=== PATIENT | male | born 1945 | race Caucasian/White ===

== ENCOUNTER 2017-05-18 10:58 | Outpatient (CLI) | payer MEDICARE, BC ==
[2017-05-18] MEDS ORDERED: Iopamidol 370 76% 100 ML VIAL ONE (14:30)
== END 2017-05-18 10:59 | disposition home or self-care (01) ==
LOC: BICCT 10:58
PROVIDERS: ATTEND Thoracic Surgery (Cardiothoracic Vascular Surgery)
DX: Z95.828 Presence of other vascular implants and grafts; I71.4 Abdominal aortic aneurysm, without rupture
CPT/HCPCS: 74174

== ENCOUNTER 2017-05-22 09:41 | Outpatient (CLI) | payer MEDICARE, BC ==
--- NOTE | 2017-05-22 12:34 | MRI ---
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 FINDINGS: Motion artifact limits image detail. No joint effusion is evident. No osteochondral defect is evident. The lateral medial epicondyles appe ar within normal limits. The biceps and brachialis insertions appear within normal limits. The visual ized supinator demonstrates a normal signal intensity and bulk. The visualized extensor tendons of th e proximal forearm demonstrate normal signal intensity. The ulna collateral ligament, radial collater al ligament, and lateral ulnar collateral ligament are intact. The extensor mechanism appears grossly intact. Visualized aspects of the ulnar nerve appear within normal limits. IMPRESSION: 1. Some limitations to the exam as above. 2. Normal muscle signal intensity and bulk involving the radial nerve motor distribution. No definite mass effect process is seen along the expected course of the posterior interosseous nerve or radial nerve bifurcation at the level of the elbow. POS: [facility]
== END 2017-05-22 09:42 | disposition home or self-care (01) ==
LOC: MRI 09:41
PROVIDERS: ATTEND Psychiatry & Neurology Neurology
DX: G56.32 Lesion of radial nerve, left upper limb (principal)

== ENCOUNTER 2018-03-12 06:42 | Outpatient (CLI) | payer MEDICARE, BC ==
[2018-03-12 13:00] LABS: Hemoglobin 14.1 g/dL (14.0-18.0); Mean Corpuscular HGB CONC 31.9 g/dL (32.0-36.0); Mean Corpuscular Hemoglobin 30.2 pg (27.0-31.0); Mean Corpuscular Volume 94.6 fL (78.0-98.0); Mean Platelet Volume 7.3 fL (7.4-10.4); Platelet Count 308 thou/uL (130-400); RBC Distribution Width 12.4 % (11.5-14.5); Red Blood Cell (RBC) Count 4.68 mill/uL (4.70-6.10); White Blood Cell (WBC) Count 7.2 thou/uL (4.8-10.8)
[2018-03-12 13:19] LABS: Anion Gap 13 mmol/L (10-20); BUN (Urea Nitrogen) 22 mg/dL (8.4-25.7); Calc. Creatinine Clearance 0 mL/min (70-130); Calcium 10.3 mg/dL (7.8-10.44); Carbon Dioxide 25 mmol/L (23-31); Chloride 106 mmol/L (98-107); Estimated GFR-MDRD 82; Glucose 100 mg/dL (80-115); Potassium 4.4 mmol/L (3.5-5.1); Sodium 140 mmol/L (136-145)
== END 2018-03-12 06:43 | disposition home or self-care (01) ==
LOC: LABBT 06:42
PROVIDERS: ATTEND Thoracic Surgery (Cardiothoracic Vascular Surgery)
DX: Z01.818 Encounter for other preprocedural examination (principal); I71.4 Abdominal aortic aneurysm, without rupture
CPT/HCPCS: 80048; 85027; 86850; 86900; 86901; 93005; 93010

== ENCOUNTER 2018-03-12 10:30 | Inpatient (IN) | payer MEDICARE, BC ==
[2018-03-13] MEDS ORDERED: CEFAZOLIN 2 GM/50 ML BAG ONE (06:17)
[2018-03-13] MEDS ORDERED: Heparin 5,000 UNITS/ML VIAL ONE (06:35)
[2018-03-13] MEDS ORDERED: Protamine Sulfate 50 MG/5 ML VIAL ONE (06:35)
[2018-03-13] MEDS ORDERED: Dexmedetomidine 200 MCG/2 ML VIAL ONE (06:37)
[2018-03-13] MEDS ORDERED: Midazolam HCl 5 mg/5 ml Vial ONE (06:37)
[2018-03-13] MEDS ORDERED: Fentanyl 100 MCG/2 ML VIAL ONE ×2 (06:37→12:19)
[2018-03-13] MEDS ORDERED: Vecuronium 10 MG VIAL ONE ×2 (06:37→10:19)
[2018-03-13] MEDS ORDERED: Midazolam HCl 2 mg/2 ml Vial ONE (06:37)
--- NOTE | 2018-03-13 07:18 | HP ---
HISTORY OF PRESENT ILLNESS: This is a 72-year-old gentleman whom I have followed for several years for an enlarging abdominal aortic aneurysm, now up to 6 cm in size with a short neck and significant iliac and femoral disease making an endovascular aneurysm repair not feasible. He is being admitted today for an aortobifemoral bypass. He has had a negative stress test about 1 year ago and an echo done a few weeks ago that was reportedly okay. PAST MEDICAL HISTORY: Includes prior right iliac stent by Dr. Reese. Previous hypertension, dyslipidemia, longstanding smoking history, bilateral rotator cuff injuries and left radial nerve dysfunction. PAST SURGICAL HISTORY: Includes knee surgery, bilateral herniorrhaphy, cervical fusion, stent to the right iliac artery, and cholecystectomy. SOCIAL HISTORY: He has a longstanding smoking history, but stopped in the past three months. He is with his , a lung cancer survivor. MEDICATIONS: Include 1. Amlodipine 5 mg a day. 2. Aspirin 81 a day. 3. Lipitor 20 a day. 4. Mitigare 0.6 mg daily. REVIEW OF SYSTEMS: The patient has nocturia times 0 to 1. He has no chest pain. He does admit to weight gain. He denies cough or shortness of breath. He does admit to claudication in his calves, if he is in a hurry or going uphill, but not lifestyle limiting. He does have low back pain with sciatica and numbness over his right anterior thigh. PHYSICAL EXAMINATION: VITAL SIGNS: Height 6 feet 1 inch. Weight about 175. NECK: No carotid bruits. CARDIAC: Regular rate and rhythm. No murmurs. LUNGS: Clear to auscultation. ABDOMEN: Palpable, nontender. Abdominal aortic aneurysm. EXTREMITIES: No peripheral edema. He has palpable femoral pulses and no distal pulses, with a Doppler signal in both posterior tibials of about 100-110. PLAN: At this time is for an aortobifemoral bypass and informed consent has been obtained. Number of questions have been asked by the today and she has not previously accompanied him to his office visits. Job ID: [id number]
[2018-03-13] MEDS ORDERED: Vancomycin HCl 500 MG VIAL ONE (07:23)
[2018-03-13] MEDS ORDERED: Heparin 10,000 UNITS/1 ML VIAL 30,000 UNITS in Sodium Chloride 0.9% 1,000 ML IVPB SCH (08:15)
[2018-03-13] MEDS ORDERED: ePHEDrine/0.9% NaCl/PF SYRINGE 50 mg/10 ml ONE (10:19)
[2018-03-13] MEDS ORDERED: Glycopyrrolate 0.2 MG/ML 5 ML SYRINGE ONE (10:19)
[2018-03-13] MEDS ORDERED: PROPOFOL 200 MG/20 ML VIAL ONE (10:19)
[2018-03-13] MEDS ORDERED: Dexamethasone 20 MG/5 ML VIAL ONE (10:19)
[2018-03-13] MEDS ORDERED: Ketorolac Tromethamine 30 MG/ML VIAL ONE (10:19)
[2018-03-13] MEDS ORDERED: Lidocaine 2% PF 100 mg/5 ml Syringe ONE (10:19)
[2018-03-13] MEDS ORDERED: PHENYLEPHRINE-NS 100 MCG/ML 10 ML SYRINGE ONE (10:19)
[2018-03-13] MEDS ORDERED: Heparin 30,000 units/30 ml VIAL ONE (10:19)
[2018-03-13] MEDS ORDERED: Ondansetron PF 4 MG/2 ML Vial ONE (10:19)
[2018-03-13] MEDS ORDERED: Ondansetron HCl/PF 4 MG/2 ML Vial IVP PRN (11:15)
[2018-03-13] MEDS ORDERED: Fentanyl 100 MCG/2 ML VIAL SLOW IVP PRN ×2 (12:33)
[2018-03-13] MEDS ORDERED: Potassium Chloride 20 MEQ/100 ML PREMIX BAG IVPB PRN (12:33)
[2018-03-13] MEDS ORDERED: CEFAZOLIN/Water 2 GM/20 ML SYRINGE SLOW IVP SCH (12:33)
[2018-03-13] MEDS ORDERED: DOPamine 400 MG/D5W 250 ML 250 ML IVPB PRN (12:33)
[2018-03-13] MEDS ORDERED: hydrALAZINE 20 MG/ML VIAL SLOW IVP PRN (12:33)
[2018-03-13] MEDS ORDERED: Nitroglycerin 50 MG/250 ML BOT 250 ML IVPB PRN (12:33)
--- NOTE | 2018-03-13 12:40 | OP ---
DATE OF PROCEDURE: 03/13/2018 PREOPERATIVE DIAGNOSES: Abdominal aortic aneurysm and aortoiliac occlusive disease. PROCEDURE PERFORMED: Aortobifemoral bypass with bilateral profundoplasty. DRAW BENCH OPERATOR HELPER: Jesus Hsieh MD. TRANSFUSION: None. ESTIMATED BLOOD LOSS: 350. PROCEDURE: After adequate anesthesia had been obtained, the patient was prepped and draped, given preoperative antibiotics. Bilateral groin incisions were then made to expose the common, both profunda branches bilaterally, and the origin of the superficial femoral artery. Following this, attention was turned to a midline laparotomy incision, which was carried out. Abdomen was entered. Bowel was retracted to the right and out of the abdomen to allow access to the aorta. Dissection was carried proximally to the level of the renal veins and then distally to access the common iliac arteries. Tunnels were created in both groins, staying posterior to the ureters bluntly. Following heparinization, a clamp was applied to the infrarenal abdominal aorta as well as to the distal aorta just above the bifurcation. The aneurysm was opened and there were no lumbar vessels or VALERIA vessels that were patent. Attention was then turned to the iliacs, which were heavily calcified. The calcium was debrided from both origins to allow them to be oversewn with running 3-0 Prolene sutures individually. Following this, a 16 x 8 mm graft was chosen to perform the proximal anastomosis with a running 3-0 Prolene suture. Individual sutures were then used to deal with bleeding sites. Graft was then brought through the tunnel. The left common femoral artery was clamped as was the profunda branches and the SFA. Arteriotomy was performed and there was active bleeding through the graft from the common femoral artery with one clamp being insufficient to control the calcified vessel. A second clamp was applied. The arteriotomy was extended onto the main profunda branch for about 1-1/2 cm. There was heavy posterior calcification; however, it was elected not to do an endarterectomy. Following this, the limb of the graft was anastomosed in an end-to-side fashion with a running 5-0 Prolene suture, flushing the graft, and then back flushing and forward flushing up the iliacs and then down the profunda and finally superficial femoral artery. A similar procedure was performed on the right leg requiring two clamps on the common femoral artery; however, there was a limited endarterectomy performed to allow egress of blood down the orifice of the profunda vessels. Following completion of this anastomosis, the heparin was partially reversed with protamine. The groin wounds were irrigated and closed in layers, and then attention was turned to the abdomen, where the aneurysm was closed over the proximal 2/3 of the graft and then retroperitonealization was carried out with Vicryl suture. Following completion of this, the fascia was closed with a double-stranded PDS running suture. Subcutaneous tissue and skin closed in layers. Job ID: [id number]
[2018-03-13] MEDS ORDERED: Morphine 2 MG/ML SYRINGE SLOW IVP PRN (12:46)
[2018-03-13 12:54] LABS: #Lymphocytes 1.2 thou/uL (1.20-3.40); #Monocytes 0.6 thou/uL (0.11-0.59); #Neutrophils 12.4 thou/uL (1.40-6.50); %Basophils 0.3 % (0.0-1.0); %Eosinophils 0.2 % (0.0-10.0); %Lymphocytes 8.2 % (21.0-51.0); %Monocytes 3.9 % (0.0-10.0); %Neutrophils 87.4 % (42.0-75.0); Hemoglobin 11.7 g/dL (14.0-18.0); Mean Corpuscular HGB CONC 32.8 g/dL (32.0-36.0); Mean Corpuscular Volume 97.6 fL (78.0-98.0); Mean Platelet Volume 7.1 fL (7.4-10.4); Platelet Count 230 thou/uL (130-400); RBC Distribution Width 12.3 % (11.5-14.5); Red Blood Cell (RBC) Count 3.65 mill/uL (4.70-6.10); White Blood Cell (WBC) Count 14.2 thou/uL (4.8-10.8)
[2018-03-13 13:21] LABS: Anion Gap 16 mmol/L (10-20); BUN (Urea Nitrogen) 24 mg/dL (8.4-25.7); Calc. Creatinine Clearance 73 mL/min (70-130); Calcium 8.6 mg/dL (7.8-10.44); Carbon Dioxide 20 mmol/L (23-31); Chloride 109 mmol/L (98-107); Estimated GFR-MDRD 67; Glucose 164 mg/dL (80-115); Sodium 141 mmol/L (136-145)
--- NOTE | 2018-03-13 13:40 | RAD ---
CHEST ONE VIEW: HISTORY: Chest pain. COMPARISON: 09/30/2015 FINDINGS: The cardiac silhouette is magnified by projection. The pulmonary vasculature is unremarkable. The r ight hemidiaphragm remains slightly elevated. No confluent air space consolidation or evidence of pn eumothorax. The tip of a right subclavian central venous catheter projects over the cavoatrial junct ion. vehicle monitor technician leads overly the chest. IMPRESSION: 1. Right subclavian central venous catheter is in good radiographic position. 2. Atherosclerosis. POS: [facility]
[2018-03-13] MEDS: CEFAZOLIN 2 GM/50 ML-DEXTROSE 2 GM in Premix Bag 1 BAG IVPB SCH ×2 (13:58→21:58)
[2018-03-13] MEDS ORDERED: Ketorolac Tromethamine 30 MG/ML VIAL IVP SCH (14:00)
[2018-03-13] MEDS: D5 1/2 NS w/20 mEq KCL 1,000 ML IV SCH ×2 (14:44→20:01)
[2018-03-13] MEDS ORDERED: Naloxone HCl 0.4 mg/ml Vial IV PRN ×2 (17:23→17:50)
[2018-03-13] MEDS ORDERED: Zolpidem Tartrate 5 MG TAB PO PRN ×2 (17:23→17:50)
[2018-03-13] MEDS ORDERED: diphenhydrAMINE 50 MG/ML VIAL IVP PRN ×2 (17:23→17:50)
[2018-03-13] MEDS ORDERED: diphenhydrAMINE 50 MG/ML VIAL IM PRN ×2 (17:23→17:50)
[2018-03-13] MEDS ORDERED: Ondansetron PF 4 MG/2 ML Vial IVP PRN ×2 (17:23→17:50)
[2018-03-13] MEDS ORDERED: Promethazine HCl 25 MG/ML VIAL IM PRN ×2 (17:23→17:50)
[2018-03-13] MEDS ORDERED: diphenhydrAMINE 25 MG CAP PO PRN ×2 (17:23→17:50)
[2018-03-13] MEDS ORDERED: Communication Order-Pharmacy FS SCH ×2 (17:30→18:00)
[2018-03-13] MEDS ORDERED: fentaNYL Citrate/PF 2,000 MCG in Sodium Chloride 0.9% 60 ML IV PRN (17:50)
[2018-03-13] MEDS ORDERED: Vancomycin HCl 1 GM in Premix Bag 1 BAG IVPB SCH (18:00)
[2018-03-13] MEDS: fentaNYL Citrate/PF 2,000 MCG in Sodium Chloride 0.9% 60 ML IV PRN (18:49)
[2018-03-13] MEDS: Vancomycin HCl 1 GM in Premix Bag 1 BAG IVPB SCH (20:01)
[2018-03-13] MEDS ORDERED: Famotidine/PF 20 mg/2ml Vial SLOW IVP SCH (21:00)
[2018-03-14] MEDS: D5 1/2 NS w/20 mEq KCL 1,000 ML IV SCH (04:46)
[2018-03-14 04:49] LABS: #Lymphocytes 1.1 thou/uL (1.20-3.40); #Monocytes 1.6 thou/uL (0.11-0.59); #Neutrophils 10.8 thou/uL (1.40-6.50); %Basophils 0.1 % (0.0-1.0); %Eosinophils 0.1 % (0.0-10.0); %Lymphocytes 8.1 % (21.0-51.0); %Monocytes 11.5 % (0.0-10.0); %Neutrophils 80.3 % (42.0-75.0); Hemoglobin 11.4 g/dL (14.0-18.0); Mean Corpuscular HGB CONC 32.2 g/dL (32.0-36.0); Mean Corpuscular Hemoglobin 31.5 pg (27.0-31.0); Mean Corpuscular Volume 97.8 fL (78.0-98.0); Mean Platelet Volume 7.4 fL (7.4-10.4); Platelet Count 232 thou/uL (130-400); RBC Distribution Width 12.2 % (11.5-14.5); Red Blood Cell (RBC) Count 3.63 mill/uL (4.70-6.10); White Blood Cell (WBC) Count 13.5 thou/uL (4.8-10.8)
[2018-03-14 05:13] LABS: Anion Gap 10 mmol/L (10-20); BUN (Urea Nitrogen) 18 mg/dL (8.4-25.7); Calc. Creatinine Clearance 79 mL/min (70-130); Calcium 8.4 mg/dL (7.8-10.44); Carbon Dioxide 24 mmol/L (23-31); Chloride 106 mmol/L (98-107); Estimated GFR-MDRD 73; Glucose 194 mg/dL (80-115); Sodium 136 mmol/L (136-145)
[2018-03-14] MEDS: CEFAZOLIN 2 GM/50 ML-DEXTROSE 2 GM in Premix Bag 1 BAG IVPB SCH (05:33)
[2018-03-14] MEDS: Sodium Chloride 0.45% 1,000 ML IV SCH ×2 (06:23→16:50)
[2018-03-14] MEDS: Vancomycin HCl 1 GM in Premix Bag 1 BAG IVPB SCH (07:59)
[2018-03-14] MEDS: Aspirin 325 MG TAB PO SCH (07:59)
--- NOTE | 2018-03-14 09:08 | RAD ---
CHEST ONE VIEW: History: Post op open heart follow up. Comparison: 03-13-18 FINDINGS: Monitor leads overlie the chest. Right central line. Right hemidiaphragm elevation with less inspirat ion than on the prior study. Mild increased markings in the infrahilar regions and lower lung zones w hich appear somewhat more prominent than the prior study, probably related to less inspiration. Old g ranulomatous disease. Atherosclerosis of the aorta. IMPRESSION: Less inspiration with some minimal increased markings in the bases, possibly mild developing subsegme ntal atelectasis related to the poorer inspiratory effort. Atherosclerosis and old granulomatous dise ase. Continued short term follow up. POS: [facility]
[2018-03-14 14:09] LABS: Actual Bicarbonate (HCO3a) 22.7 mEq/L (22-28); Analyzer IN Cardio OR; Base Excess (BEa) -2.7 mEq/L (-2.0 to +3.0); CO2 Tension 41.3 mmHg (35.0-45.0); Calcium, Ionized 1.09 mmol/L (1.12-1.30); Carboxyhemoglobin (COHb) 0.5 gm% (0.0-3.0); Hemoglobin (Hb) 11.9 g/dL (14.0-18.0); O2 Tension (PaO2) 182.8 mmHg (> 70.0); Potassium - ABG Lab 3.67 mmol/L (3.70-5.30); pH, Arterial 7.36 (7.35-7.45)
[2018-03-14 14:10] LABS: Puncture Site ALINE
[2018-03-14] MEDS: Ondansetron PF 4 MG/2 ML Vial IVP PRN (17:59)
[2018-03-15] MEDS: Ondansetron PF 4 MG/2 ML Vial IVP PRN (02:56)
[2018-03-15] MEDS: fentaNYL Citrate/PF 2,000 MCG in Sodium Chloride 0.9% 60 ML IV PRN (04:37)
[2018-03-15 05:08] LABS: #Lymphocytes 0.8 thou/uL (1.20-3.40); #Monocytes 1.5 thou/uL (0.11-0.59); #Neutrophils 11.7 thou/uL (1.40-6.50); %Basophils 0.2 % (0.0-1.0); %Lymphocytes 5.5 % (21.0-51.0); %Monocytes 10.8 % (0.0-10.0); %Neutrophils 83.5 % (42.0-75.0); Hemoglobin 12.1 g/dL (14.0-18.0); Mean Corpuscular HGB CONC 32.8 g/dL (32.0-36.0); Mean Corpuscular Hemoglobin 32.2 pg (27.0-31.0); Mean Corpuscular Volume 98.2 fL (78.0-98.0); Mean Platelet Volume 7.3 fL (7.4-10.4); Platelet Count 233 thou/uL (130-400); RBC Distribution Width 12.1 % (11.5-14.5); Red Blood Cell (RBC) Count 3.74 mill/uL (4.70-6.10)
[2018-03-15 05:24] LABS: Anion Gap 15 mmol/L (10-20); BUN (Urea Nitrogen) 26 mg/dL (8.4-25.7); Calc. Creatinine Clearance 85 mL/min (70-130); Calcium 8.3 mg/dL (7.8-10.44); Carbon Dioxide 21 mmol/L (23-31); Chloride 103 mmol/L (98-107); Estimated GFR-MDRD 78; Glucose 171 mg/dL (80-115); Potassium 4.1 mmol/L (3.5-5.1); Sodium 135 mmol/L (136-145)
[2018-03-15] MEDS: Sodium Chloride 0.45% 1,000 ML IV SCH ×4 (06:47→17:34)
--- NOTE | 2018-03-15 09:05 | RAD ---
CHEST ONE VIEW: HISTORY: Dyspnea. Followup. Heart surgery. COMPARISON: 03/14/2018 FINDINGS: The cardiac silhouette is magnified by projection. The pulmonary vasculature is accentuated by shall ow inspiration. The right hemidiaphragm remains slightly elevated. Mild bibasilar atelectasis is st able. No evidence of pneumothorax. Right subclavian central venous catheter remains in place. IMPRESSION: Stable radiographic appearance of the chest. POS: [facility]
[2018-03-15] MEDS: Aspirin 325 MG TAB PO SCH (09:37)
[2018-03-15] MEDS ORDERED: chlorproMAZINE HCl 50 MG/2 ML AMP SLOW IVP PRN (15:48)
[2018-03-16 05:32] LABS: #Eosinphils 0.1 thou/uL (0.0-0.7); #Lymphocytes 1.6 thou/uL (1.20-3.40); #Monocytes 1.4 thou/uL (0.11-0.59); #Neutrophils 7.9 thou/uL (1.40-6.50); %Basophils 0.3 % (0.0-1.0); %Eosinophils 0.9 % (0.0-10.0); %Lymphocytes 14.2 % (21.0-51.0); %Monocytes 12.8 % (0.0-10.0); %Neutrophils 71.8 % (42.0-75.0); Hemoglobin 10.9 g/dL (14.0-18.0); Mean Corpuscular HGB CONC 32.9 g/dL (32.0-36.0); Mean Corpuscular Hemoglobin 32.2 pg (27.0-31.0); Mean Corpuscular Volume 97.8 fL (78.0-98.0); Mean Platelet Volume 7.6 fL (7.4-10.4); Platelet Count 213 thou/uL (130-400)
[2018-03-16 05:47] LABS: Anion Gap 16 mmol/L (10-20); BUN (Urea Nitrogen) 29 mg/dL (8.4-25.7); Calc. Creatinine Clearance 89 mL/min (70-130); Calcium 7.8 mg/dL (7.8-10.44); Carbon Dioxide 25 mmol/L (23-31); Chloride 100 mmol/L (98-107); Estimated GFR-MDRD 82; Glucose 121 mg/dL (80-115); Potassium 3.5 mmol/L (3.5-5.1); Sodium 137 mmol/L (136-145)
--- NOTE | 2018-03-16 08:01 | RAD ---
CHEST 1 VIEW: Date: 03/16/18 INDICATION: History of postop ileus. Dyspnea. Follow-up heart surgery. COMPARISON: Prior exam dated 03/15/18. FINDINGS: There is persistent elevation of the right hemidiaphragm. Bibasilar atelectasis persists, right great er than left. There is a gastric catheter projecting beyond the left hemidiaphragm below the field of view. Right subclavian central venous catheter is similar appearing. No pneumothorax is evident. IMPRESSION: 1. New gastric catheter projecting below the left hemidiaphragm beyond the field of view. 2. Other stable appearance to the chest. POS: [facility]
[2018-03-16] MEDS: Ketorolac Tromethamine 30 MG/ML VIAL IVP PRN ×2 (08:11→13:00)
[2018-03-16] MEDS: Sodium Chloride 0.45% 1,000 ML IV SCH ×5 (08:13→20:51)
[2018-03-16] MEDS: Aspirin 325 MG TAB PO SCH (08:14)
[2018-03-16] MEDS ORDERED: Pantoprazole 40 MG VIAL IVP SCH (12:45)
[2018-03-16] MEDS ORDERED: Potassium Chloride 40 MEQ in Premix Bag 1 BAG IVPB SCH (13:00)
--- NOTE | 2018-03-16 13:06 | CON ---
DATE OF CONSULTATION: 03/16/2018 SERVICE: Pulmonary Medicine. REASON FOR CONSULT: ICU patient. HISTORY OF PRESENT ILLNESS: The patient is a 72-year-old white male with past medical history significant for severe peripheral vascular disease. He had previous stents in his groin. These things were almost completely occluding calcified over. Ultimately, he had claudication. He presented for an elective outpatient procedure. His postop course was complicated by ileus. He denies any current fevers, chills, nausea, vomiting, or diarrhea. He has yet to tolerate any p.o. He has had a significant amount of output from his NG tube. PAST MEDICAL HISTORY: 1. Peripheral vascular disease, severe. 2. Hypertension. 3. Dyslipidemia. 4. Coronary artery disease. PAST SURGICAL HISTORY: 1. Abdominal aortic aneurysm repair. 2. Bilateral aortofemoral bypass. 3. Rotator cuff repairs. 4. Knee surgeries. 5. Herniorrhaphy. 6. Fusion of the cervical spine. 7. Stent to the right iliac artery. 8. Cholecystectomy. SOCIAL HISTORY: Negative for alcohol, tobacco, or illicit drug use currently. He has a greater than 100-pack year history of smoking. He denies any alcohol or illicit drug use. He has no exposure to chemicals, dust, asbestos, or tuberculosis. FAMILY HISTORY: Noncontributory. ALLERGIES: SULFA. MEDICATIONS: List of the patient's inpatient medications was reviewed. A couple of small updates were made. REVIEW OF SYSTEMS: General, head, ears, eyes, nose, throat, cardiovascular, respiratory, GI, , musculoskeletal, neurologic, and skin are negative except as mentioned in the HPI. PHYSICAL EXAMINATION: VITAL SIGNS: Afebrile with a T-max of 100.2. Pulse 96, blood pressure 128/74, respirations 21 saturation 92% on 2 L nasal cannula. GENERAL: The patient is awake and alert, in no apparent distress. LUNGS: Decent air entry. No prolonged expiratory phase or wheezing appreciated. HEART: Normal rate, regular. ABDOMEN: Soft. Tenderness to palpation is appropriate. Bowel sounds are positive. There is no rebound or guarding. : Roth catheter in place. NEUROLOGIC: Grossly nonfocal. LABORATORY DATA: WBC 11.0 and downtrending, hemoglobin is downtrending to 11, platelets 213,000. PH 7.36, pCO2 41, PO2 180. Basic metabolic profile is completely unremarkable with a creatinine of 0.91. Potassium 3.5. IMAGING: Chest x-ray demonstrates elevated right-sided hemidiaphragm. There is an enteric catheter coursing below the level of the diaphragm. There is a right subclavian central venous catheter which terminates in good position. ASSESSMENT: 1. Peripheral vascular disease, status post repair of abdominal aortic aneurysm and bilateral aortofemoral bypass, postop day #3. 2. Ileus postop. 3. Hiccups. 4. Minimal coffee grounds coming from NG tube. DISCUSSION AND PLAN: I will repeat hemoglobin and hematocrit tomorrow morning. Protonix will be initiated twice daily in case we drop further. Thorazine will be discontinued as he had a bad reaction to it yesterday with tachyarrhythmia. Potassium will be replaced today. I will check a magnesium with tomorrow morning's laboratories. Pulmonary and Critical Care will continue to follow along while the patient remains in this location. 70 minutes have been devoted to this patient in various activities. I personally reviewed all imaging studies and laboratory data noted within this document. For fifty percent of this time, I was interacting with the patient at the bedside or coordinating care with the care team. For the remainder of the time I was immediately available to the patient in the hospital unit. Job ID: [id number] MTDD
[2018-03-16] MEDS ORDERED: Potassium Chloride 20 MEQ in Premix Bag 1 BAG IVPB SCH (13:30)
[2018-03-16] MEDS: fentaNYL Citrate/PF 2,000 MCG in Sodium Chloride 0.9% 60 ML IV PRN (16:02)
[2018-03-16] MEDS: Enoxaparin Sodium 30 MG/0.3 ML SYRINGE SC SCH (20:41)
[2018-03-16] MEDS: Pantoprazole 40 MG VIAL IVP SCH (20:42)
[2018-03-17 05:12] LABS: #Basophils 0.1 thou/uL (0.0-0.2); #Eosinphils 0.4 thou/uL (0.0-0.7); #Lymphocytes 1.6 thou/uL (1.20-3.40); #Monocytes 1.2 thou/uL (0.11-0.59); #Neutrophils 6.2 thou/uL (1.40-6.50); %Basophils 0.7 % (0.0-1.0); %Lymphocytes 16.7 % (21.0-51.0); %Monocytes 12.3 % (0.0-10.0); %Neutrophils 66.2 % (42.0-75.0); Hemoglobin 9.4 g/dL (14.0-18.0); Mean Corpuscular HGB CONC 32.8 g/dL (32.0-36.0); Mean Corpuscular Volume 97.7 fL (78.0-98.0); Mean Platelet Volume 7.5 fL (7.4-10.4); Platelet Count 240 thou/uL (130-400); RBC Distribution Width 11.8 % (11.5-14.5); Red Blood Cell (RBC) Count 2.94 mill/uL (4.70-6.10); White Blood Cell (WBC) Count 9.3 thou/uL (4.8-10.8)
[2018-03-17 05:29] LABS: Phosphorus 2.1 mg/dL (2.3-4.7)
[2018-03-17 05:31] LABS: Anion Gap 14 mmol/L (10-20); BUN (Urea Nitrogen) 25 mg/dL (8.4-25.7); Calc. Creatinine Clearance 104 mL/min (70-130); Calcium 7.6 mg/dL (7.8-10.44); Carbon Dioxide 24 mmol/L (23-31); Chloride 103 mmol/L (98-107); Estimated GFR-MDRD Greater than 90; Glucose 91 mg/dL (80-115); Magnesium 1.9 mg/dL (1.6-2.6); Potassium 3.5 mmol/L (3.5-5.1); Sodium 137 mmol/L (136-145)
[2018-03-17] MEDS: Sodium Chloride 0.45% 1,000 ML IV SCH (06:18)
[2018-03-17] MEDS: Aspirin 325 MG TAB PO SCH (08:51)
[2018-03-17] MEDS: Pantoprazole 40 MG VIAL IVP SCH (08:52)
[2018-03-17] MEDS ORDERED: Potassium Phosphate 30 MMOL in Sodium Chloride 0.9% 500 ML IVPB SCH (09:00)
--- NOTE | 2018-03-17 09:25 | PRG ---
DATE OF SERVICE: 03/17/2018 SERVICE: Pulmonary Medicine. INTERVAL HISTORY: The patient is doing fine from respiratory standpoint. Breathing comfortably. There has been no interval change to his condition. Yesterday evening, he had very high residuals in the NG tube. As such, we left it in overnight. Overnight, the residuals fell off to 250 mL over long period of time. As such, we subsequently discontinued his NG tube. He has an appetite. He is passing gas, having bowel movements. PHYSICAL EXAMINATION: VITAL SIGNS: Afebrile, pulse 72, blood pressure 123/53, respirations 18, and saturation 95% on room air. GENERAL: The patient is awake and alert, in no apparent distress. LUNGS: Decent air entry. There is no prolonged expiratory phase or wheezing. HEART: Normal rate and regular. ABDOMEN: Soft, nontender, and nondistended. Bowel sounds are positive. MUSCULOSKELETAL: No cyanosis or clubbing. No pitting in the bilateral lower extremities. NEUROLOGIC: Grossly nonfocal. LABORATORY DATA: WBC 9.3, hemoglobin 9.4, platelets 240,000. Basic metabolic profile is completely unremarkable. Magnesium is 1.9, phosphorus is a little low at 2.1. ASSESSMENT: 1. Peripheral vascular disease, status post repair of abdominal aortic aneurysm, and bilateral aortofemoral bypass, postop day 4. 2. Ileus, improving. 3. Hiccups, improving. DISCUSSION AND PLAN: Hemoglobin has been stable. Replace potassium and phosphorus, which were both low. A clear liquid diet will be provided. If he tolerates this well, this will be advanced through time. From my perspective, he is stable for transition to the floor. When this occurs, he will have no further requirements for inpatient Pulmonary Critical Care opinion, and I will sign off. Job ID: [id number]
[2018-03-17] MEDS: Enoxaparin Sodium 30 MG/0.3 ML SYRINGE SC SCH (21:00)
[2018-03-18 06:36] LABS: Anion Gap 12 mmol/L (10-20); BUN (Urea Nitrogen) 14 mg/dL (8.4-25.7); Calc. Creatinine Clearance 104 mL/min (70-130); Carbon Dioxide 25 mmol/L (23-31); Chloride 106 mmol/L (98-107); Estimated GFR-MDRD Greater than 90; Glucose 111 mg/dL (80-115); Potassium 3.8 mmol/L (3.5-5.1); Sodium 139 mmol/L (136-145)
[2018-03-18] MEDS: Aspirin 325 MG TAB PO SCH (09:22)
[2018-03-18] MEDS: fentaNYL Citrate/PF 2,000 MCG in Sodium Chloride 0.9% 60 ML IV PRN (12:02)
--- NOTE | 2018-03-18 15:31 | CON ---
DATE OF CONSULTATION: Consultation to Dr. Ronni Godoy. PRIMARY CARE PROVIDER: Dr. Aleksandra Frazier. REASON FOR CONSULTATION: C. diff diarrhea. HISTORY OF PRESENT ILLNESS: The patient admitted to the hospital on 03/13/[address] Godoy with abdominal aortic aneurysm and severe peripheral vascular disease. On 03/13/2018, he underwent aortobifemoral bypass with bilateral profundoplasty. The patient was transferred to the intensive care unit postoperatively and was seen in consultation by Dr. Jacky Menchaca. PAST MEDICAL HISTORY: Peripheral vascular disease, abdominal aortic aneurysm, hypertension, dyslipidemia, and coronary artery disease. PAST SURGICAL HISTORY: Abdominal aortic aneurysm repair, rotator cuff repairs, bilateral knee surgeries, herniorrhaphy, fusion of cervical spine, stent in the right iliac artery, and cholecystectomy. MEDICATIONS: At the time of admission included multivitamin one a day; colchicine 1 tablet in the morning, 0.6 mg; Lipitor 20 mg a day; and amlodipine 5 mg twice a day. ALLERGIES: SULFA. FAMILY HISTORY: Multiple members with coronary artery disease on his father's side. Negative for inheritable diseases on his mother's side. He is . Full code status. , next of kin. He quit smoking approximately 4 months ago. REVIEW OF SYSTEMS: GENERAL: No fevers, sweats, chills, headaches, dizziness, or fainting. EYES: No double vision, blurred vision, or flashing light. EAR, NOSE, AND THROAT: No ear pain or drainage. No nasal bleeding. He did have a mild sore throat post endotracheal tube removal, it is now improved. CARDIAC: No chest pain, orthopnea, or paroxysmal nocturnal dyspnea. RESPIRATIONS: No cough, wheezing, or asthma. GASTROINTESTINAL: He is currently having diarrhea every 2 to 3 hours. He has noted no blood in his stools. He has abdominal pain, which hurts front to back. He has had some hiccups. He is not having any nausea or vomiting. GENITOURINARY: No hematuria or dysuria. MUSCULOSKELETAL: No pain or swelling in his legs except in the area of surgery. He has bilateral groin incisions and a midline infraumbilical incision. NEUROLOGIC: No strokes, seizures, or focal weakness. PSYCHIATRIC: No anxiety or depression. SKIN: The aforementioned incisions in the right and left groin in the suprapubic midline area. HEME/LYMPH: No tender or swollen lymph nodes in the axilla, inguinal, or cervical area. PHYSICAL EXAMINATION: GENERAL: He is alert, oriented, cooperative, pleasant gentleman. VITAL SIGNS: Blood pressure 125/67, room air sat 94%, pulse 66, respirations 18, and temperature 98.5. HEAD, EYES, EARS, NOSE, AND THROAT: Revealed pupils are equal, round, and reactive to light. Extraocular movements are intact. Sclerae are white. Tympanic membranes are clear. Nose clear. Throat is clear. NECK: Supple without jugular venous distention, adenopathy, or thyromegaly. CHEST: Clear to auscultation and percussion. HEART: Had a regular rate and rhythm. First and second heart sounds are clear. There are no murmurs or gallops. ABDOMEN: Soft. Bowel sounds are normal. There is some minimal tenderness. No detectable hepatosplenomegaly or mass. EXTREMITIES: No cyanosis, clubbing, or edema. PULSES: Carotid, radial, and femoral pulses are intact. Pedal pulses are diminished, but palpable. SKIN: Warm and dry with clean incisions in the midline suprapubic area and both inguinal areas. HEME/LYMPH: Reveals no tender or swollen lymph nodes in the axilla, inguinal, or cervical area. NEUROLOGIC: Cranial nerves 2 through 12 are intact. Moves all extremities. Deep tendon reflexes grossly symmetric. LABORATORY DATA: Basic metabolic profile is normal. CBC shows a white count of 9.3, hemoglobin 9.4, and platelet count 240,000. His C. difficile antigen is positive. The toxigenic C. difficile is pending. ASSESSMENT: Probable Clostridium difficile colitis; peripheral arterial disease, post bypass surgery in this hospitalization; abdominal aortic aneurysm, post repair; hypertension; and dyslipidemia. PLAN: I have added oral vancomycin 250 q.i.d. to his orally pending toxigenic titer. If positive, we will continue; if negative, we will discontinue. In addition, I have ordered a lipase to be done. Thank you for the consult. We will follow with you. Job ID: [id number]
[2018-03-18] MEDS: Vancomycin HCl 25 MG/ML Oral PO SCH ×2 (17:05→21:13)
--- NOTE | 2018-03-18 17:26 | EKG ---
Test Reason : STAT Blood Pressure : / mmHG Vent. Rate : 110 BPM Atrial Rate : 110 BPM P-R Int : 162 ms QRS Dur : 092 ms QT Int : 338 ms P-R-T Axes : 082 -07 086 degrees QTc Int : 457 ms Sinus tachycardia Nonspecific ST and T wave abnormality Abnormal ECG When compared with ECG of 12-MAR-2018 12:21, Vent. rate has increased BY 50 BPM T wave inversion now evident in Inferior leads Nonspecific T wave abnormality now evident in Lateral leads Confirmed by JUSTIN DHALIWAL, DR. Robles ([id number]) on 03/18/2018 5:26:26 PM Referred By: Liseth AU Confirmed By:DR. Margaret ANDERSON MD
[2018-03-18] MEDS: Enoxaparin Sodium 30 MG/0.3 ML SYRINGE SC SCH (21:13)
[2018-03-19] MEDS ORDERED: HYDROcodone/Acetaminophen 5/325 mg Tablet PO PRN (06:24)
[2018-03-19] MEDS ORDERED: Ibuprofen 800 MG TAB PO PRN (06:25)
--- NOTE | 2018-03-19 08:06 | PDOC.PN ---
- Subjective Encounter Start Date: 03/19/18 Encounter Start Time: 08:04 Subjective: some abd dicomfort, no diarrhea - Objective MAR Reviewed: Yes Vital Signs & Weight: Vital Signs (12 hours) Temp Pulse Resp BP Pulse Ox 03/19/18 07:25 98.0 F 69 16 132/70 96 03/19/18 04:00 98.4 F 78 18 125/72 96 03/18/18 21:20 93 L Weight Admit Weight 180 lb Weight 182 lb 3.2 oz Most Recent Monitor Data Heart Rate from ECG 71 NIBP 132/60 NIBP BP-Mean 92 Respiration from ECG 18 SpO2 98 I&O: 03/18/18 03/19/18 03/20/18 06:59 06:59 06:59 Intake Total 2810 1630 Output Total 1145 1225 Balance 1665 405 Result Diagrams: 03/17/18 04:30 03/18/18 05:45 Phys Exam - Physical Examination Neck: no JVD Respiratory: clear to auscultation bilateral Cardiovascular: RRR, no significant murmur Gastrointestinal: soft mild distention, hyperactive bowel sounds Musculoskeletal: no edema Dx/Plan (1) Colitis due to Clostridium difficile Status: Acute (2) HTN (hypertension) Code(s): I10 - ESSENTIAL (PRIMARY) HYPERTENSION Status: Acute Qualifiers: Hypertension type: essential hypertension Qualified Code(s): I10 - Essential (primary) hypertension (3) PAD (peripheral artery disease) Code(s): I73.9 - PERIPHERAL VASCULAR DISEASE, UNSPECIFIED Status: Chronic (4) Dyslipidemia Code(s): E78.5 - HYPERLIPIDEMIA, UNSPECIFIED Status: Chronic - Plan cont po vancomycin, discuss with Dr Godoy * .
[2018-03-19] MEDS: Aspirin 325 MG TAB PO SCH (08:22)
[2018-03-19] MEDS: Vancomycin HCl 25 MG/ML Oral PO SCH ×4 (08:23→21:16)
--- NOTE | 2018-03-19 09:15 | PRG ---
DATE OF SERVICE: 03/18/2018 SERVICE: Pulmonary Medicine. INTERVAL HISTORY: The patient is doing actually pretty darn well. He is tolerating p.o. He is having bowel movements. In fact, he had some diarrhea. C. diff antigen and toxin have been sent off. My hope is that we created this with motility drugs. Otherwise, there has been no interval change to his condition. PHYSICAL EXAMINATION: VITAL SIGNS: Afebrile, pulse 78, blood pressure 149/69, respirations 20, and saturation 94% on room air. GENERAL: The patient is awake and alert, in no apparent distress. LUNGS: Decent air entry. No prolonged expiratory phase, wheezing, rhonchi, or crackles are present. HEART: Normal rate and regular. ABDOMEN: Soft. Nontender. There is appropriate tenderness secondary to his incision. There is no rebound or guarding. Bowel sounds are active. MUSCULOSKELETAL: No cyanosis or clubbing. No pitting in the bilateral lower extremities. NEUROLOGIC: Grossly nonfocal. LABORATORY DATA: Basic metabolic profile is completely unremarkable. Lipase is low. C. diff antigen and toxin are positive. ASSESSMENT: 1. Peripheral vascular disease, status post repair of abdominal aortic aneurysm and bilateral aortofemoral bypass, postop day 5. 2. Clostridium difficile colitis infection. 3. Hiccups, resolved. 4. Ileus, resolved. DISCUSSION AND PLAN: The patient is on appropriate antimicrobial therapy for his new C. diff infection. From a purely lung standpoint, the patient has no ongoing issues. Pulmonary will sign off at this time. Please call with additional questions or concerns through time. Job ID: [id number] MTDD
[2018-03-19] MEDS: HYDROcodone/Acetaminophen 5/325 mg Tablet PO PRN ×3 (09:35→19:28)
[2018-03-19] MEDS: Atorvastatin Calcium 20 MG TAB PO SCH (21:16)
[2018-03-19] MEDS: Enoxaparin Sodium 30 MG/0.3 ML SYRINGE SC SCH (21:17)
[2018-03-20] MEDS: HYDROcodone/Acetaminophen 5/325 mg Tablet PO PRN ×5 (00:52→21:58)
--- NOTE | 2018-03-20 08:05 | PDOC.PN ---
- Subjective Encounter Start Date: 03/20/18 Encounter Start Time: 08:03 Subjective: no diarhea, abd pain, etc - Objective MAR Reviewed: Yes Vital Signs & Weight: Vital Signs (12 hours) Temp Pulse Resp BP Pulse Ox 03/20/18 07:30 98.1 F 62 16 143/70 H 95 03/20/18 04:00 98.2 F 72 18 117/64 96 03/20/18 00:51 65 20 132/69 03/19/18 21:17 98 03/19/18 21:15 97.9 F Weight Admit Weight 180 lb Weight 178 lb 3.2 oz Most Recent Monitor Data Heart Rate from ECG 71 NIBP 132/60 NIBP BP-Mean 92 Respiration from ECG 18 SpO2 98 I&O: 03/19/18 03/20/18 03/21/18 06:59 06:59 06:59 Intake Total 1630 1790 Output Total 1225 910 Balance 405 880 Result Diagrams: 03/17/18 04:30 03/18/18 05:45 Phys Exam - Physical Examination Neck: no JVD Respiratory: clear to auscultation bilateral Cardiovascular: RRR, no significant murmur Gastrointestinal: soft, non-tender, no distention, positive bowel sounds Musculoskeletal: no edema Dx/Plan (1) Colitis due to Clostridium difficile Status: Acute (2) HTN (hypertension) Code(s): I10 - ESSENTIAL (PRIMARY) HYPERTENSION Status: Acute Qualifiers: Hypertension type: essential hypertension Qualified Code(s): I10 - Essential (primary) hypertension (3) PAD (peripheral artery disease) Code(s): I73.9 - PERIPHERAL VASCULAR DISEASE, UNSPECIFIED Status: Chronic (4) Dyslipidemia Code(s): E78.5 - HYPERLIPIDEMIA, UNSPECIFIED Status: Chronic - Plan colitis symptoms resolved, will need to finish 10d course vanc at [place] * .
[2018-03-20] MEDS: Aspirin 325 MG TAB PO SCH (09:02)
[2018-03-20] MEDS: Vancomycin HCl 25 MG/ML Oral PO SCH ×4 (09:03→21:57)
[2018-03-20 15:05] VITALS: BMI 24.1
[2018-03-20] MEDS: Atorvastatin Calcium 20 MG TAB PO SCH (21:59)
[2018-03-20] MEDS: Enoxaparin Sodium 30 MG/0.3 ML SYRINGE SC SCH (21:59)
[2018-03-21] MEDS: HYDROcodone/Acetaminophen 5/325 mg Tablet PO PRN ×2 (06:02→10:17)
--- NOTE | 2018-03-21 07:18 | PDOC.PN ---
- Subjective Encounter Start Date: 03/21/18 Encounter Start Time: 07:17 Subjective: no abd pain, diarrhea - Objective MAR Reviewed: Yes Vital Signs & Weight: Vital Signs (12 hours) Temp Pulse Resp BP Pulse Ox 03/21/18 03:56 96.9 F L 77 15 133/62 98 03/20/18 20:00 96.9 F L 70 16 121/64 98 Weight Admit Weight 180 lb Weight 177 lb 4 oz Most Recent Monitor Data Heart Rate from ECG 71 NIBP 132/60 NIBP BP-Mean 92 Respiration from ECG 18 SpO2 98 I&O: 03/20/18 03/21/18 03/22/18 06:59 06:59 06:59 Intake Total 1790 Output Total 910 700 Balance 880 -700 Result Diagrams: 03/17/18 04:30 03/18/18 05:45 Phys Exam - Physical Examination Neck: no JVD Respiratory: clear to auscultation bilateral Cardiovascular: RRR, no significant murmur Gastrointestinal: soft, non-tender Musculoskeletal: no edema Dx/Plan (1) Colitis due to Clostridium difficile Status: Acute (2) HTN (hypertension) Code(s): I10 - ESSENTIAL (PRIMARY) HYPERTENSION Status: Acute Qualifiers: Hypertension type: essential hypertension Qualified Code(s): I10 - Essential (primary) hypertension (3) PAD (peripheral artery disease) Code(s): I73.9 - PERIPHERAL VASCULAR DISEASE, UNSPECIFIED Status: Chronic (4) Dyslipidemia Code(s): E78.5 - HYPERLIPIDEMIA, UNSPECIFIED Status: Chronic - Plan complete 10 day course vancomycin po * .
[2018-03-21 07:26] VITALS: BP 141/75; TEMP 98.1
--- NOTE | 2018-03-21 08:10 | DIS ---
DATE OF ADMISSION: 03/13/2018 DATE OF DISCHARGE: 03/21/2018 PRIMARY CARE PROVIDER: Aleksandra Frazier MD. CONSULTING PHYSICIAN: Ronni Godoy MD DISPOSITION: Discharged home. FINAL DIAGNOSES: Colitis, Clostridium difficile, hypertension, dyslipidemia, peripheral vascular disease. DISCHARGE MEDICATIONS: 1. Lipitor 20 mg p.o. daily. 2. Colchicine 1 tab daily 0.6 mg. 3. Vancomycin 250 mg p.o. q.i.d. for 4 days. ALLERGIES: SULFA. CODE STATUS: Full pending at time of discharge. CONSULTATION: [facility]. PROCEDURES: Aortobifemoral bypass with bilateral profundoplasty on 03/13/2018. HOSPITAL COURSE: The patient with peripheral vascular disease, admitted for surgery on 03/18/2018. He was noted to have diarrhea, abdominal pain. C. diff on stool was positive for toxigenic C. difficile. Started on oral vancomycin with rapid resolution of his symptoms. He is doing well at this time. He is being discharged home. LABORATORY DATA: At the time of discharge, white count was 9.3, hemoglobin on admission 11.7, at discharge it is 9.4. Chemistries on 2018 are balanced. At the time of discharge, the patient's vital signs are stable. Cardiovascular exam is excellent. Abdominal exam is normal. FOLLOWUP: He will follow up per Dr. Ronni Godoy's instructions. Job ID: [id number] MTDD
[2018-03-21] MEDS: Aspirin 325 MG TAB PO SCH (08:31)
[2018-03-21] MEDS: Vancomycin HCl 25 MG/ML Oral PO SCH (08:31)
== END 2018-03-21 11:23 | disposition home or self-care (01) | DRG 271 ==
LOC: SURG A 03-13 05:57 → CCU 03-13 12:19 → 2NO 03-17 17:27
PROVIDERS: ADMIT Thoracic Surgery (Cardiothoracic Vascular Surgery); ATTEND Thoracic Surgery (Cardiothoracic Vascular Surgery)
PROC: 021 Heart and Great Vessels, Bypass (ICD-10-PCS; principal; 2018-03-13)
PROC: 04BY0ZZ Excision of Lower Artery, Open Approach (ICD-10-PCS; 2018-03-13)
DX: I71.4 Abdominal aortic aneurysm, without rupture (principal); A04.72 Enterocolitis due to Clostridium difficile, not specified as recurrent; K56.7 Ileus, unspecified; I10 Essential (primary) hypertension; E78.5 Hyperlipidemia, unspecified; I73.9 Peripheral vascular disease, unspecified; I25.10 Atherosclerotic heart disease of native coronary artery without angina pectoris; F17.210 Nicotine dependence, cigarettes, uncomplicated; R06.6 Hiccough; Z79.82 Long term (current) use of aspirin; Z90.49 Acquired absence of other specified parts of digestive tract
CPT/HCPCS: 36415; 36416; 71045; 80048; 82805; 83690; 83735; 84100; 85025; 85027; 86850; 86900; 86901; 87324; 87449; 87493; 90471; 90662; 93005; 93010; C9113; G0008; J1100; J1642; J1644; J1650; J1885; J2001; J2250; J2405; J2704; J2720; J3010; J3230; J3370; J3480; J7050

== ENCOUNTER 2018-04-27 15:30 | Emergency (ER) | payer MEDICARE, BC ==
[~2018-04-27 15:30] MED LIST: ISOVUE-370 76%-LOCM 1 ML ONE
[2018-04-27 16:14] LABS: #Basophils 0.1 thou/uL (0.0-0.2); #Eosinphils 0.3 thou/uL (0.0-0.7); #Lymphocytes 1.8 thou/uL (1.20-3.40); #Monocytes 0.9 thou/uL (0.11-0.59); #Neutrophils 9.8 thou/uL (1.40-6.50); %Basophils 0.7 % (0.0-1.0); %Eosinophils 2.4 % (0.0-10.0); %Lymphocytes 14.2 % (21.0-51.0); %Monocytes 7.1 % (0.0-10.0); %Neutrophils 75.6 % (42.0-75.0); Hemoglobin 12.2 g/dL (14.0-18.0); Mean Corpuscular HGB CONC 31.8 g/dL (32.0-36.0); Mean Corpuscular Volume 94.2 fL (78.0-98.0); Mean Platelet Volume 7.4 fL (7.4-10.4); Platelet Count 483 thou/uL (130-400); RBC Distribution Width 12.5 % (11.5-14.5); Red Blood Cell (RBC) Count 4.06 mill/uL (4.70-6.10); White Blood Cell (WBC) Count 12.9 thou/uL (4.8-10.8)
[2018-04-27 16:34] LABS: ALT (SGPT) 9 U/L (8-55); AST (SGOT) 13 U/L (5-34); Albumin 3.8 g/dL (3.4-4.8); Alkaline Phosphatase 100 U/L (40-150); Anion Gap 17 mmol/L (10-20); BUN (Urea Nitrogen) 20 mg/dL (8.4-25.7); Bilirubin, Total 0.4 mg/dL (0.2-1.2); Calc. Creatinine Clearance 0 mL/min (70-130); Calcium 9.5 mg/dL (7.8-10.44); Carbon Dioxide 21 mmol/L (23-31); Chloride 106 mmol/L (98-107); Estimated GFR-MDRD 77; Globulin 3.7 g/dL (2.4-3.5); Glucose 140 mg/dL (83-110); Potassium 3.1 mmol/L (3.5-5.1); Protein, Total 7.5 g/dL (5.8-8.1); Sodium 141 mmol/L (136-145)
[2018-04-27] MEDS ORDERED: Potassium Chloride 20 MEQ TAB ONE (17:20)
[2018-04-27] MEDS ORDERED: Morphine 4 MG/ML VIAL ONE ×2 (17:20→18:09)
--- NOTE | 2018-04-27 17:32 | CT ---
CONTRAST ENHANCED CT IMAGES ABDOMEN AND PELVIS 04/27/18 HISTORY: 73-year-old with recent history of abdominal aortic aneurysm repair. The lung bases are unremarkable. No evidence of free intraperitoneal air seen. There is a large anterior abdominal wall postsurgical scar. The liver contains small calcified granulomas. Numerous splenic calcified granulomas seen. The gallbladder has been surgically removed. The pancreas is unremarkable. Adrenal glands unremarkable. The kidneys demonstrate no definite evidence of masses or lesions or hyd ronephrosis. Proximal abdominal aortic calcifications seen. A small hiatal hernia is seen (sliding). There is an infrarenal aortobifemoral graft which is patent. The hopi aorta is collapsed with no fl ow seen within it. No dilated loops of bowel seen. There is some stool seen in the colon. Numerous sigmoid colonic diver ticula are present. Osseous structures are intact. IMPRESSION: Patent aortobifemoral graft. The SMA is patent except for some vascular calcifications at its origin. The celiac artery is patent. The renal arteries also patent. Atherosclerotic calcification seen in t he origin of the right renal artery. Extensive common femoral and superficial femoral artery vascular calcifications also seen. POS: HARVINDER
== END 2018-04-27 19:06 | disposition home or self-care (01) ==
LOC: ERS 15:30
DX: R10.30 Lower abdominal pain, unspecified (principal); I71.4 Abdominal aortic aneurysm, without rupture; I10 Essential (primary) hypertension; E78.5 Hyperlipidemia, unspecified; Z87.891 Personal history of nicotine dependence; Z79.899 Other long term (current) drug therapy
CPT/HCPCS: 74177; 80053; 84484; 85025; 96374; 96376; J2270; Q9966

== ENCOUNTER 2018-05-01 06:03 | Inpatient (IN) | payer MEDICARE, BC ==
[2018-04-30 17:19] VITALS: BMI 21.1
[2018-05-01] MEDS ORDERED: Midazolam HCl 2 mg/2 ml Vial ONE (06:36)
[2018-05-01] MEDS ORDERED: Fentanyl 100 MCG/2 ML VIAL ONE ×4 (06:36→13:46)
[2018-05-01] MEDS ORDERED: Lidocaine 1% w/Epinephrine 1:100K 20 ML VIAL ONE (06:40)
[2018-05-01] MEDS ORDERED: PROPOFOL 200 MG/20 ML VIAL ONE (10:22)
[2018-05-01] MEDS ORDERED: Lidocaine 1% PF 5 ML VIAL ONE (10:22)
[2018-05-01] MEDS ORDERED: Rocuronium Bromide 10 MG/ML (10ML VIAL) ONE (10:22)
[2018-05-01] MEDS ORDERED: Ondansetron PF 4 MG/2 ML Vial ONE (10:22)
[2018-05-01] MEDS ORDERED: PHENYLEPHRINE-NS 100 MCG/ML 10 ML SYRINGE ONE (10:22)
[2018-05-01] MEDS ORDERED: Dexamethasone 20 MG/5 ML VIAL ONE (10:22)
--- NOTE | 2018-05-01 12:49 | OP ---
DATE OF PROCEDURE: 05/01/2018 PREOPERATIVE DIAGNOSIS: Abdominal wound infection. POSTOPERATIVE DIAGNOSIS: Abdominal wound infection. PROCEDURE PERFORMED: Exploration, I and D lower abdominal incision. ANESTHESIA: General. ESTIMATED BLOOD LOSS: Minimal. FINDINGS: The patient had no purulent material within the wound, but did have a small cavity inferior and slightly to the left of the incision at the site of the PDS knot. DESCRIPTION OF PROCEDURE: After prepping and draping, a hemostat was used to gently probe the hole in the lower most port of the incision and the skin incision was then carried cephalad. A small cavity was entered with no purulent material. Wound was then extended cephalad further exposing some more PDS suture. The area was gently debrided and with the patient coughing slightly under anesthesia, there was no fluid being admitted from the incision. The fascia appeared to be intact, but that was based on the coughing and not visually being able to see the fascia. The fascia had no grayish fluid around it and it could not be dissected bluntly with the finger. The wound was irrigated and a wound VAC was placed. The patient was to be taken to the recovery room in good condition. Job ID: [id number]
[2018-05-01] MEDS ORDERED: Sodium Chloride 0.9% 100 ML ONE (15:09)
[2018-05-01] MEDS ORDERED: Piperacillin/Tazobactam 3.375 GM VIAL ONE (15:09)
[2018-05-01] MEDS ORDERED: HYDROcodone/Acetaminophen 5/325 mg Tablet ONE (15:45)
[2018-05-01] MEDS ORDERED: Acetaminophen 325 MG TAB PO PRN (15:59)
[2018-05-01] MEDS ORDERED: Ondansetron ODT 4 MG TAB PO PRN (15:59)
[2018-05-01] MEDS ORDERED: HYDROcodone/Acetaminophen 5/325 mg Tablet PO PRN (15:59)
[2018-05-01] MEDS ORDERED: Fentanyl 100 MCG/2 ML VIAL SLOW IVP PRN (15:59)
[2018-05-01] MEDS: Vancomycin HCl 1.25 GM in Sodium Chloride 0.9% 250 ML 250 ML IVPB SCH (17:09)
[2018-05-01] MEDS: Piperacillin/Tazobactam 3.375 GM in Sodium Chloride 0.9% 100 ML IVPB SCH ×2 (17:13→21:38)
[2018-05-01] MEDS ORDERED: Vancomycin HCl 25 MG/ML Oral PO SCH (18:00)
[2018-05-01] MEDS: Vancomycin HCl 25 MG/ML Oral PO SCH (21:35)
[2018-05-01] MEDS: Atorvastatin Calcium 20 MG TAB PO SCH (21:35)
[2018-05-01] MEDS: HYDROcodone/Acetaminophen 5/325 mg Tablet PO PRN (21:36)
[2018-05-01] MEDS: Famotidine 20 MG TAB PO SCH (21:36)
[2018-05-02] MEDS: Vancomycin HCl 25 MG/ML Oral PO SCH ×3 (03:59→16:47)
[2018-05-02] MEDS: HYDROcodone/Acetaminophen 5/325 mg Tablet PO PRN ×5 (04:00→22:57)
[2018-05-02] MEDS: Piperacillin/Tazobactam 3.375 GM in Sodium Chloride 0.9% 100 ML IVPB SCH ×4 (04:00→22:57)
[2018-05-02 05:01] LABS: #Lymphocytes 1.3 thou/uL (1.20-3.40); #Monocytes 0.9 thou/uL (0.11-0.59); #Neutrophils 5.4 thou/uL (1.40-6.50); %Basophils 0.3 % (0.0-1.0); %Monocytes 11.4 % (0.0-10.0); %Neutrophils 71.2 % (42.0-75.0); Hemoglobin 9.8 g/dL (14.0-18.0); Mean Corpuscular HGB CONC 31.3 g/dL (32.0-36.0); Mean Corpuscular Hemoglobin 29.9 pg (27.0-31.0); Mean Corpuscular Volume 95.4 fL (78.0-98.0); Mean Platelet Volume 7.2 fL (7.4-10.4); Platelet Count 469 thou/uL (130-400); RBC Distribution Width 12.7 % (11.5-14.5); Red Blood Cell (RBC) Count 3.29 mill/uL (4.70-6.10); White Blood Cell (WBC) Count 7.6 thou/uL (4.8-10.8)
[2018-05-02 05:18] LABS: Anion Gap 12 mmol/L (10-20); BUN (Urea Nitrogen) 17 mg/dL (8.4-25.7); Calc. Creatinine Clearance 71 mL/min (70-130); Calcium 8.6 mg/dL (7.8-10.44); Carbon Dioxide 27 mmol/L (23-31); Chloride 106 mmol/L (98-107); Estimated GFR-MDRD 75; Glucose 292 mg/dL (83-110); Potassium 3.9 mmol/L (3.5-5.1); Sodium 141 mmol/L (136-145)
[2018-05-02] MEDS ORDERED: Insulin Regular 300 UNITS/3 ML VIAL SC PRN (06:06)
[2018-05-02] MEDS ORDERED: Dextrose 5% in Water 1,000 ML IV PRN (06:06)
[2018-05-02] MEDS ORDERED: Dextrose 50% Abboject 50 ML SYRINGE SLOW IVP PRN (06:06)
[2018-05-02] MEDS ORDERED: Enoxaparin Sodium 30 MG/0.3 ML SYRINGE SC SCH (09:00)
[2018-05-02] MEDS: Famotidine 20 MG TAB PO SCH ×2 (09:09→20:57)
[2018-05-02] MEDS: Aspirin 81 mg Enteric Coated Tablet PO SCH (09:10)
[2018-05-02] MEDS: Enoxaparin Sodium 40 MG/0.4 ML SYRINGE SC SCH (09:12)
[2018-05-02] MEDS: Vancomycin HCl 1.25 GM in Sodium Chloride 0.9% 250 ML 250 ML IVPB SCH (17:01)
[2018-05-02] MEDS: Atorvastatin Calcium 20 MG TAB PO SCH (20:57)
[2018-05-03] MEDS: Piperacillin/Tazobactam 3.375 GM in Sodium Chloride 0.9% 100 ML IVPB SCH ×2 (03:32→10:27)
[2018-05-03] MEDS: HYDROcodone/Acetaminophen 5/325 mg Tablet PO PRN ×5 (04:03→22:49)
[2018-05-03 07:13] LABS: #Basophils 0.1 thou/uL (0.0-0.2); #Eosinphils 0.1 thou/uL (0.0-0.7); #Lymphocytes 2.6 thou/uL (1.20-3.40); #Monocytes 0.9 thou/uL (0.11-0.59); #Neutrophils 5.6 thou/uL (1.40-6.50); %Basophils 0.8 % (0.0-1.0); %Eosinophils 1.5 % (0.0-10.0); %Lymphocytes 27.6 % (21.0-51.0); %Monocytes 9.4 % (0.0-10.0); %Neutrophils 60.7 % (42.0-75.0); Hemoglobin 10.5 g/dL (14.0-18.0); Mean Corpuscular HGB CONC 32.6 g/dL (32.0-36.0); Mean Corpuscular Hemoglobin 30.6 pg (27.0-31.0); Mean Corpuscular Volume 93.9 fL (78.0-98.0); Mean Platelet Volume 7.2 fL (7.4-10.4); Platelet Count 503 thou/uL (130-400); RBC Distribution Width 12.8 % (11.5-14.5); Red Blood Cell (RBC) Count 3.45 mill/uL (4.70-6.10); White Blood Cell (WBC) Count 9.2 thou/uL (4.8-10.8)
[2018-05-03 07:15] LABS: Hemoglobin A1c 5.4 % (4.0-6.0)
[2018-05-03] MEDS: Famotidine 20 MG TAB PO SCH ×2 (09:21→21:13)
[2018-05-03] MEDS: Aspirin 81 mg Enteric Coated Tablet PO SCH (09:22)
[2018-05-03] MEDS: Enoxaparin Sodium 40 MG/0.4 ML SYRINGE SC SCH (09:22)
[2018-05-03] MEDS ORDERED: cefTRIAXone\\ROCEPHIN 1 GM in Sodium Chloride 0.9% 100 ML IVPB SCH (15:00)
[2018-05-03] MEDS: Atorvastatin Calcium 20 MG TAB PO SCH (21:13)
[2018-05-04] MEDS: HYDROcodone/Acetaminophen 5/325 mg Tablet PO PRN ×3 (05:57→12:01)
[2018-05-04] MEDS: Famotidine 20 MG TAB PO SCH (08:32)
[2018-05-04] MEDS: Aspirin 81 mg Enteric Coated Tablet PO SCH (08:32)
[2018-05-04] MEDS: Enoxaparin Sodium 40 MG/0.4 ML SYRINGE SC SCH (08:32)
[2018-05-04 11:16] VITALS: BP 155/85; TEMP 98.4
--- NOTE | 2018-05-06 11:54 | DIS ---
DATE OF ADMISSION: 05/01/2018 DATE OF DISCHARGE: 05/04/2018 HOSPITAL COURSE: The patient was admitted with lower abdominal discomfort and it was felt that he may have a lower abdominal wound incision about 6 weeks following an aortobifemoral graft. He was taken to the operating room, and the incision was opened inferiorly, and there was no purulent material. Cultures were taken. There was some exposed PDS suture, and a wound VAC was applied, and antibiotics begun. Cultures returned Staph sensitive to everything. His pain is improved and he is walking in the halls with his wound VAC and he will be discharged today on Keflex 500 t.i.d. for 1 week. Discharge and followup instructions have been given, and he will return to wound care for wound VAC change. He will also receive a prescription for [place]. Job ID: [id number]
== END 2018-05-04 12:25 | disposition home or self-care (01) | DRG 863 ==
LOC: SDC 06:03 → SJJU 12:30
PROVIDERS: ADMIT Thoracic Surgery (Cardiothoracic Vascular Surgery); ATTEND Thoracic Surgery (Cardiothoracic Vascular Surgery)
PROC: 0WJG3ZZ Inspection of Peritoneal Cavity, Percutaneous Approach (ICD-10-PCS; principal; 2018-05-01)
DX: T81.41XA Infection following a procedure, superficial incisional surgical site, initial encounter (principal); B95.8 Unspecified staphylococcus as the cause of diseases classified elsewhere; Y83.8 Other surgical procedures as the cause of abnormal reaction of the patient, or of later complication, without mention of misadventure at the time of the procedure
CPT/HCPCS: 36415; 36416; 80048; 83036; 85025; 87070; 87077; 87186; 87205; J0696; J1100; J1650; J1815; J2001; J2250; J2405; J2543; J2704; J3010; J3370; J7050

== ENCOUNTER 2018-05-07 11:03 | Outpatient (CLI) | payer MEDICARE, BC ==
[~2018-05-07 11:03] MED LIST changes: -ISOVUE-370 76%-LOCM 1 ML ONE; +Lidocaine 4% Topical Sol 50 ML BOT ONE; +Sodium Chloride 0.9% 15 ML NEB ONE
== END 2018-05-07 11:04 | disposition home or self-care (01) ==
LOC: WCC 11:03
PROVIDERS: ATTEND Family Medicine
DX: T81.89XD Other complications of procedures, not elsewhere classified, subsequent encounter (principal)
CPT/HCPCS: 97605; A4218

== ENCOUNTER 2018-05-10 13:36 | Outpatient (CLI) | payer MEDICARE, BC ==
[2018-05-10] MEDS ORDERED: Sodium Chloride 0.9% 15 ML NEB ONE (18:00)
== END 2018-05-10 13:37 | disposition home or self-care (01) ==
LOC: WCC 13:36
PROVIDERS: ATTEND Family Medicine
DX: T81.89XD Other complications of procedures, not elsewhere classified, subsequent encounter (principal)
CPT/HCPCS: 97605; A4218

== ENCOUNTER 2018-05-14 15:49 | Outpatient (CLI) | payer MEDICARE, BC ==
[2018-05-14] MEDS ORDERED: Sodium Chloride 0.9% 15 ML NEB ONE (18:00)
== END 2018-05-14 15:50 | disposition home or self-care (01) ==
LOC: WCC 15:49
PROVIDERS: ATTEND Family Medicine
DX: T81.89XD Other complications of procedures, not elsewhere classified, subsequent encounter (principal)
CPT/HCPCS: 97605; A4218

== ENCOUNTER 2018-05-17 14:24 | Outpatient (CLI) | payer MEDICARE, BC ==
[~2018-05-17 14:24] MED LIST changes: -Lidocaine 4% Topical Sol 50 ML BOT ONE
== END 2018-05-17 14:25 | disposition home or self-care (01) ==
LOC: WCC 14:24
PROVIDERS: ATTEND Family Medicine
DX: T81.89XD Other complications of procedures, not elsewhere classified, subsequent encounter (principal)
CPT/HCPCS: 97605; A4218

== ENCOUNTER 2018-05-20 04:40 | Emergency (ER) | payer MEDICARE, BC ==
[2018-05-20 05:29] LABS: #Basophils 0.1 thou/uL (0.0-0.2); #Eosinphils 0.4 thou/uL (0.0-0.7); #Lymphocytes 2.1 thou/uL (1.20-3.40); #Monocytes 0.6 thou/uL (0.11-0.59); #Neutrophils 2.4 thou/uL (1.40-6.50); %Lymphocytes 38.1 % (21.0-51.0); %Monocytes 10.5 % (0.0-10.0); %Neutrophils 42.3 % (42.0-75.0); Hemoglobin 11.4 g/dL (14.0-18.0); Mean Corpuscular HGB CONC 32.2 g/dL (32.0-36.0); Mean Corpuscular Hemoglobin 29.8 pg (27.0-31.0); Mean Corpuscular Volume 92.8 fL (78.0-98.0); Mean Platelet Volume 7.2 fL (7.4-10.4); Platelet Count 390 thou/uL (130-400); RBC Distribution Width 13.7 % (11.5-14.5); Red Blood Cell (RBC) Count 3.83 mill/uL (4.70-6.10); White Blood Cell (WBC) Count 5.6 thou/uL (4.8-10.8)
[2018-05-20 05:50] LABS: ALT (SGPT) 13 U/L (8-55); AST (SGOT) 18 U/L (5-34); Albumin 3.9 g/dL (3.4-4.8); Alkaline Phosphatase 111 U/L (40-150); Anion Gap 14 mmol/L (10-20); BUN (Urea Nitrogen) 19 mg/dL (8.4-25.7); Bilirubin, Total 0.3 mg/dL (0.2-1.2); Calc. Creatinine Clearance 0 mL/min (70-130); Calcium 9.1 mg/dL (7.8-10.44); Carbon Dioxide 19 mmol/L (23-31); Chloride 109 mmol/L (98-107); Estimated GFR-MDRD 85; Globulin 3.5 g/dL (2.4-3.5); Glucose 111 mg/dL (83-110); Lipase 11 U/L (8-78); Potassium 4.1 mmol/L (3.5-5.1); Protein, Total 7.4 g/dL (5.8-8.1); Sodium 138 mmol/L (136-145)
[2018-05-20] MEDS ORDERED: Ondansetron PF 4 MG/2 ML Vial ONE (06:11)
[2018-05-20] MEDS ORDERED: Morphine 4 MG/ML VIAL ONE ×2 (06:12→07:24)
--- NOTE | 2018-05-20 09:00 | CT ---
CT OF THE ABDOMEN AND PELVIS WITH IV CONTRAST: INDICATION: A 73-year-old male with concern for possible intraabdominal abscess. The patient has worsening sever e abdominal pain around the wound vac of the lower abdomen. COMPARISON: Prior exam dated 04/27/2018. FINDINGS: There is a small wound vac overlying the infraumbilical region. There is a tiny small locule of gas with fluid seen at the base of the wound measuring approximately 8 mm. No large drainable subcutaneo us fluid collection is evident. The lung bases are clear. There are numerous calcified granuloma within the spleen. The gallbladder is surgically absent. There are scattered granuloma within the liver. The adrenal g lands and kidneys appear within normal limits. There is stable postsurgical change of an aortobifemoral bypass graft. The graft appears patent. Th e [place] iliac vasculature is completely occluded. There is a normal appendix in the right lower irasema drant. There is a mild amount of retained stool within the colon. There is diffuse osteopenia. There is scattered degenerative change. IMPRESSION: 1. A small amount of fluid and gas seen at the base of the wound vac site of the lower anterior abdo lin wall. The small fluid and gas collection measures approximately 8 mm. No large drainable flui d collection is evident. 2. Findings of prior granulomatous disease. 3. An aortobifemoral bypass graft. POS: YESIKA
[2018-05-20] MEDS ORDERED: ISOVUE-370 76%-LOCM 1 ML ONE (14:42)
== END 2018-05-20 09:00 | disposition home or self-care (01) ==
LOC: ERS 04:40
DX: R10.84 Generalized abdominal pain (principal); D64.9 Anemia, unspecified; I71.4 Abdominal aortic aneurysm, without rupture; I10 Essential (primary) hypertension; Z87.891 Personal history of nicotine dependence; E78.5 Hyperlipidemia, unspecified
CPT/HCPCS: 36415; 74177; 80053; 83605; 83690; 85025; 87040; 93005; 96374; 96375; 96376; J2270; J2405; Q9966

== ENCOUNTER 2018-05-20 11:08 | Outpatient (CLI) | payer MEDICARE, BC ==
[2018-05-20] MEDS ORDERED: Sodium Chloride 0.9% 15 ML NEB ONE (18:00)
== END 2018-05-20 11:09 | disposition home or self-care (01) ==
LOC: WCC 11:08
PROVIDERS: ATTEND Family Medicine
DX: T81.89XD Other complications of procedures, not elsewhere classified, subsequent encounter (principal)
CPT/HCPCS: 97602; A4218

== ENCOUNTER 2018-05-23 15:15 | Outpatient (CLI) | payer MEDICARE, BC ==
[2018-05-23] MEDS ORDERED: Sodium Chloride 0.9% 15 ML NEB ONE (21:31)
== END 2018-05-23 15:16 | disposition home or self-care (01) ==
LOC: WCC 15:15
PROVIDERS: ATTEND Family Medicine
DX: T81.89XD Other complications of procedures, not elsewhere classified, subsequent encounter (principal)
CPT/HCPCS: A4218

== ENCOUNTER 2018-05-27 15:05 | Outpatient (CLI) | payer MEDICARE, BC ==
[2018-05-27] MEDS ORDERED: Sodium Chloride 0.9% 15 ML NEB ONE (17:36)
== END 2018-05-27 15:06 | disposition home or self-care (01) ==
LOC: WCC 15:05
PROVIDERS: ATTEND Family Medicine
DX: T81.89XD Other complications of procedures, not elsewhere classified, subsequent encounter (principal); Z88.2 Allergy status to sulfonamides
CPT/HCPCS: 97605; A4218

== ENCOUNTER 2018-05-30 09:40 | Outpatient (CLI) | payer MEDICARE, BC ==
--- NOTE | 2018-05-30 12:05 | HP ---
HISTORY OF PRESENT ILLNESS: Mr. Jose Enrique Olsen is a very pleasant 73-year-old gentleman, who presents to the Wound Center for evaluation of a wound of the abdomen in the midline subsequent to I and D of a lower abdominal incision for treatment of an abdominal wound infection. The patient underwent the preceding procedure on 05/01/[address] Ronni Godoy. Negative pressure therapy was initiated intraoperatively. Upon discharge from [facility], the patient was referred to the Wound Center for assistance with dressing changes of the wound VAC. Previously on 03/13/2018, the patient had undergone aortobifemoral bypass with bilateral profundoplasty also by Dr. Ronni Godoy. PAST MEDICAL HISTORY: 1. Peripheral vascular disease. 2. Hypertension. 3. History of peptic ulcer disease. 4. History of nephrolithiasis. 5. History of osteoarthritis. 6. History of abdominal aortic aneurysm. PAST SURGICAL HISTORY: 1. Right knee surgery. 2. Bilateral inguinal hernia repair. 3. Cervical fusion. 4. Laparoscopic cholecystectomy. 5. Aortobifemoral bypass with bilateral profundoplasty on 03/13/2018. 6. I and D of lower abdominal incision for treatment of abdominal wound infection on 05/01/2018. MEDICATIONS: 1. Norvasc. 2. Lipitor. 3. Aleve p.r.n. 4. Melatonin p.r.n. 5. Aspirin 81 mg. 6. Multivitamin. ALLERGIES: SULFA. SOCIAL HISTORY: Social history significant for tobacco use of 1/2 to 1-1/2 packs of cigarettes per day for 40 years. The patient states that he stopped smoking in 2018. Social history is negative for EtOH use. FAMILY HISTORY: Family history significant for coronary artery disease. The patient's father was diagnosed with coronary artery disease. Family history is also significant for diabetes mellitus. The patient's brother was diagnosed with diabetes mellitus. PHYSICAL EXAMINATION: VITAL SIGNS: Stable. Afebrile. GENERAL: A 73-year-old gentleman, sitting on chair in examination room, in no acute distress. HEENT: Normocephalic, atraumatic. NECK: No nuchal rigidity. CHEST: Clear to auscultation. CV: Regular rate and rhythm. ABDOMEN: Soft. A wound of the abdomen in the midline over the inferior abdomen is present, which measures approximately 4.0 x 0.5 cm. The depth of the wound is approximately 1 cm. Granulation tissue is present within the wound margins. No purulent drainage is associated with the wound. No erythema of the skin surrounding the wound is present. No maceration of the skin of the periwound is noted. EXTREMITIES: No clubbing or cyanosis. NEUROLOGIC: Grossly nonfocal. ASSESSMENT AND PLAN: 1. Wound of lower abdomen in the midline subsequent to irrigation and debridement of a lower abdominal incision for treatment of an abdominal wound infection. The patient underwent the preceding procedure on 05/01/[address] Ronni Godoy. Negative pressure therapy was initiated intraoperatively and dressing changes of the wound VAC were continued here in the Wound Center upon the patient's discharge from [facility]. The patient was seen by Dr. Godoy on 05/27/2018. At this time, the wound VAC was discontinued and the patient was placed on wet-to-dry dressing changes on a daily basis. The wound is healing without complications or any signs of infection. I will see Mr. Olsen again in 1 week. 2. Peripheral vascular disease. 3. Hypertension. 4. History of peptic ulcer disease. 5. History of nephrolithiasis. 6. History of osteoarthritis. 7. History of abdominal aortic aneurysm. Job ID: [id number]
[2018-05-30] MEDS ORDERED: Sodium Chloride 0.9% 15 ML NEB ONE (17:19)
== END 2018-05-30 09:41 | disposition home or self-care (01) ==
LOC: WCC 09:40
PROVIDERS: ATTEND Family Medicine
DX: T81.89XD Other complications of procedures, not elsewhere classified, subsequent encounter (principal); I73.9 Peripheral vascular disease, unspecified; I10 Essential (primary) hypertension
CPT/HCPCS: 97139; 97602; G0463; 99203; A4218

== ENCOUNTER 2018-06-06 11:00 | Outpatient (CLI) | payer MEDICARE, BC ==
--- NOTE | 2018-06-06 12:08 | PRG ---
DATE OF SERVICE: 06/06/2018 HISTORY: Mr. Jose Enrique Olsen is a very pleasant 73-year-old gentleman, who presents to the Wound Center for evaluation of a wound of the abdomen in the midline subsequent to I and D of a lower abdominal incision for treatment of an abdominal wound infection. The patient underwent the preceding procedure on 05/01/[address] Ronni Godoy. Negative-pressure therapy was initiated intraoperatively. Upon discharge from [facility], the patient was referred to the Wound Center for assistance with dressing changes of the wound VAC. Previously on 03/13/2018, the patient had undergone aortobifemoral bypass with bilateral profundoplasty, also by Dr. Ronni Godoy. PHYSICAL EXAMINATION: VITAL SIGNS: Temperature 97.6, pulse 58, respirations 21, blood pressure 155/ 71. ABDOMEN: Soft. A wound of the abdomen in the midline over the inferior abdomen is present, which measures approximately 1.7 x 0.6 cm. The depth of the wound is approximately 1.5 cm. Granulation tissue is present within the wound margins. No purulent drainage is associated with the wound. No erythema of the skin surrounding the wound is present. No maceration of the skin of the periwound is noted. Hypergranulation within the wound margins was treated with the application of silver nitrate. ASSESSMENT AND PLAN: 1. Wound of lower abdomen in the midline subsequent to irrigation and debridement of a lower abdominal incision for treatment of an abdominal wound infection. The patient underwent the preceding procedure on 05/01/[address] Ronni Godoy. Negative pressure therapy was initiated intraoperatively, and dressing changes of the wound VAC were continued here in the Wound Center upon the patient's discharge from [facility]. The patient was seen by Dr. Godoy on 2018. At this time, the wound VAC was discontinued, and the patient was placed on wet to dry dressing changes on a daily basis. Wet to dry dressing changes will be discontinued. Dressing changes of Promogran, followed by bordered gauze, will be initiated today. These dressing changes are to be performed on a daily basis or alternatively every 3 days after cleansing and irrigation. The patient has been reassured that the wound is healing without complications or any signs of infection. I will see Mr. Olsen again in 1 week. 2. Peripheral vascular disease. 3. Hypertension. 4. History of peptic ulcer disease. 5. History of nephrolithiasis. 6. History of osteoarthritis. 7. History of abdominal aortic aneurysm. [facility] [id number] [facility]
[2018-06-06] MEDS ORDERED: Sodium Chloride 0.9% 15 ML NEB ONE (16:21)
== END 2018-06-06 11:01 | disposition home or self-care (01) ==
LOC: WCC 11:00
PROVIDERS: ATTEND Family Medicine
DX: S31.109D Unspecified open wound of abdominal wall, unspecified quadrant without penetration into peritoneal cavity, subsequent encounter (principal); I10 Essential (primary) hypertension; I73.9 Peripheral vascular disease, unspecified; Z87.11 Personal history of peptic ulcer disease; Z87.442 Personal history of urinary calculi; Z86.79 Personal history of other diseases of the circulatory system; Z87.39 Personal history of other diseases of the musculoskeletal system and connective tissue
CPT/HCPCS: 17250; 97602; A4218

== ENCOUNTER 2018-06-17 13:00 | Outpatient (CLI) | payer MEDICARE, BC ==
--- NOTE | 2018-06-17 15:54 | PRG ---
DATE OF SERVICE: 06/17/2018 HISTORY: Mr. Jose Enrique Olsen is a very pleasant 73-year-old gentleman, who presents to the Wound Center for evaluation of a wound of the abdomen in the midline subsequent to I and D of the lower abdominal incision for treatment of an abdominal wound infection. The patient underwent the preceding procedure on 05/01/[address] Ronni Godoy. Negative pressure therapy was initiated intraoperatively. Upon discharge from [facility], the patient was referred to the Wound Center for assistance with dressing changes of the wound VAC. Previously on 03/13/2018, the patient had undergone aortobifemoral bypass with bilateral profundoplasty also by Dr. Ronni Godoy. PHYSICAL EXAMINATION: VITAL SIGNS: Temperature 97.7, pulse 69, respirations 16, blood pressure 144/68. ABDOMEN: Soft. A wound of the abdomen in the midline over the inferior abdomen is healing without complications or any signs of infection. Nonviable tissue associated with the wound was debrided with an excisional partial thickness debridement. No purulent drainage is associated with the wound. No erythema of the skin surrounding the wound is present. No maceration of the skin of the periwound is noted. ASSESSMENT AND PLAN: 1. Wound of lower abdomen in the midline subsequent to irrigation and debridement of a lower abdominal incision for treatment of an abdominal wound infection. The patient underwent the preceding procedure on 05/01/[address] Ronni Godoy. Negative pressure therapy was initiated intraoperatively, and dressing changes of the wound VAC were continued here in the Wound Center upon the patient's discharge from [facility]. The patient was seen by Dr. Godoy on 05/27/2018. At this time, the wound VAC was discontinued and the patient was placed on wet-to-dry dressing changes on a daily basis. Subsequently, the patient was placed on dressing changes of Promogran followed by Bordered Gauze. The patient has been reassured that the wound is healing without complications or any signs of infection. Mr. Olsen will be discharged from clinic today with followup on a p.r.n. basis. The patient states he has a followup appointment with Dr. Godoy. 2. Peripheral vascular disease. 3. Hypertension. 4. Peptic ulcer disease. 5. History of nephrolithiasis. 6. History of osteoarthritis. 7. History of abdominal aortic aneurysm. Job ID: [id number]
== END 2018-06-17 13:01 | disposition home or self-care (01) ==
LOC: WCC 13:00
PROVIDERS: ATTEND Family Medicine
DX: T81.89XD Other complications of procedures, not elsewhere classified, subsequent encounter (principal); I73.9 Peripheral vascular disease, unspecified; I10 Essential (primary) hypertension; K27.9 Peptic ulcer, site unspecified, unspecified as acute or chronic, without hemorrhage or perforation; Z87.442 Personal history of urinary calculi; Z86.79 Personal history of other diseases of the circulatory system; Z87.39 Personal history of other diseases of the musculoskeletal system and connective tissue
CPT/HCPCS: 97597

== ENCOUNTER 2018-07-22 15:03 | Outpatient (CLI) | payer MEDICARE, BC ==
--- NOTE | 2018-07-22 17:22 | PRG ---
DATE OF SERVICE: 07/22/2018 HISTORY: Mr. Jose Enrique Olsen is a very pleasant 73-year-old gentleman, who presents to the wound center for evaluation of a wound of the abdomen in the midline subsequent to I and D of a lower abdominal incision for treatment of an abdominal wound infection. The patient underwent the preceding procedure on 05/01/[address] Ronni Godoy. Previously on 03/13/2018, the patient had undergone aorto bifemoral bypass with bilateral profundoplasty also by Dr. Ronni Godoy. The patient states that his wound had healed previously, but recurred approximately 4 days ago. The patient states that he has a followup appointment with Dr. Godoy in 2 weeks. PHYSICAL EXAMINATION: VITAL SIGNS: Temperature 97.8, pulse 65, respirations 19, and blood pressure 147/74. ABDOMEN: Soft. A wound of the abdomen in the midline is present. The dimensions of the wound are approximately 0.7 x 0.5 cm. The depth of the wound is approximately 1 cm. Granulation tissue is present within the wound margins. No purulent drainage is associated with the wound. No erythema of the skin surrounding the wound is present. No maceration of the skin of the periwound is noted. ASSESSMENT AND PLAN: 1. Wound of abdomen in the midline subsequent to irrigation and debridement of a lower abdominal incision for treatment of an abdominal wound infection. As stated above, this wound had healed, but recurred approximately 4 days ago. [facility]. These dressing changes are to be performed on a daily basis or alternatively 3 times per week after cleansing and irrigation. I will see Mr. Olsen again in 1 week. 2. Peripheral vascular disease. 3. Hypertension. 4. Peptic ulcer disease. 5. History of nephrolithiasis. 6. History of osteoarthritis. 7. History of abdominal aortic aneurysm. Job ID: [id number]
[2018-07-22] MEDS ORDERED: Sodium Chloride 0.9% 15 ML NEB ONE (18:00)
== END 2018-07-22 15:04 | disposition home or self-care (01) ==
LOC: WCC 15:03
PROVIDERS: ATTEND Family Medicine
DX: T81.89XD Other complications of procedures, not elsewhere classified, subsequent encounter (principal); I73.9 Peripheral vascular disease, unspecified; I10 Essential (primary) hypertension; K30 Functional dyspepsia
CPT/HCPCS: A4218

== ENCOUNTER 2018-07-29 14:07 | Outpatient (CLI) | payer MEDICARE, BC ==
--- NOTE | 2018-07-29 14:11 | PRG ---
DATE OF SERVICE: 07/29/2018 SUBJECTIVE HISTORY: Mr. Jose Enrique Olsen is a very pleasant 73-year-old gentleman, who presents to the Wound Center for evaluation of a wound of the abdomen in the midline subsequent to irrigation and debridement of a lower abdominal incision for treatment of an abdominal wound infection. The patient underwent the preceding procedure on 05/01/[address] Ronni Godoy. Previously on 03/13/2018, the patient had undergone aortobifemoral bypass with bilateral profundoplasty also by Dr. Ronni oGdoy. At the time of the patient's last visit to the Wound Center, the patient stated that the previously healed wound had recurred 4 days previously. Today, Mr. Olsen states that he has a followup appointment with Dr. Godoy in 1 week. PHYSICAL EXAMINATION: VITAL SIGNS: Temperature 97.9, pulse 68, respirations 19, and blood pressure 139/70. ABDOMEN: Soft. A wound of the abdomen in the midline is present. The dimensions of the wound are approximately 0.1 x 0.1 cm. Granulation tissue is visible within the wound margins. No purulent drainage is associated with the wound. No erythema of the skin surrounding the wound is present. No maceration of the skin of the periwound is noted. ASSESSMENT AND PLAN: 1. Wound of abdomen in the midline subsequent to irrigation and debridement of the lower abdominal incision for treatment of an abdominal wound infection. As stated above, at the time of the patient's last visit, the patient stated that his previously healed wound had recurred 4 days previously. [facility]. The patient has been asked to dress his wound with a dry dressing either on a daily basis or 3 times per week. These dressing changes are to be performed after cleansing and irrigation in the shower. I will see Mr. Olsen again as needed after evaluation by Cardiovascular Surgery. 2. Peripheral vascular disease. 3. Hypertension. 4. Peptic ulcer disease. 5. History of nephrolithiasis. 6. History of osteoarthritis. 7. History of abdominal aortic aneurysm. Job ID: [id number]
== END 2018-07-29 14:08 | disposition home or self-care (01) ==
LOC: WCC 14:07
PROVIDERS: ATTEND Family Medicine
DX: T81.89XD Other complications of procedures, not elsewhere classified, subsequent encounter (principal); I73.9 Peripheral vascular disease, unspecified; I10 Essential (primary) hypertension; K27.9 Peptic ulcer, site unspecified, unspecified as acute or chronic, without hemorrhage or perforation; Z86.79 Personal history of other diseases of the circulatory system; Z87.39 Personal history of other diseases of the musculoskeletal system and connective tissue; Z87.442 Personal history of urinary calculi
CPT/HCPCS: 97602; A4218

== ENCOUNTER 2019-12-01 13:48 | Outpatient (CLI) | payer MEDICARE, BC ==
--- NOTE | 2019-12-01 14:27 | RAD ---
EXAM: 4 views of the lumbosacral spine HISTORY: Inflammatory spondyloarthropathy COMPARISON: None FINDINGS: 4 views of the lumbosacral spine shows normal height and alignment of the vertebral bodies without fracture or subluxation. The L3/4 and L4/5 intervertebral discs are narrowed with moderate surrounding osteophytes. No pars defects are seen in the oblique images. Moderate posterior facet ar throsis is seen in the lower lumbosacral spine. The sacroiliac joints are unremarkable. Cholecystectomy clips are seen. IMPRESSION: Moderate degenerative changes of lumbar spine without acute osseous abnormality
== END 2019-12-01 13:49 | disposition home or self-care (01) ==
LOC: BICRAD 13:48
PROVIDERS: ATTEND Internal Medicine Rheumatology
DX: M46.87 Other specified inflammatory spondylopathies, lumbosacral region (principal); M47.816 Spondylosis without myelopathy or radiculopathy, lumbar region
CPT/HCPCS: 72110

== ENCOUNTER 2020-01-20 14:36 | Outpatient (CLI) | payer MEDICARE, BC ==
--- NOTE | 2020-01-20 16:04 | MRI ---
MR the lumbar spine without contrast: 01/20/2020 History: Low back pain with left lower extremity radiculopathy COMPARISON: None available TECHNIQUE: Multiplanar multisequence MR images were obtained of lumbar spine without IV contrast FINDINGS: On the basis of 5 lumbar type vertebral bodies, conus medullaris terminates at [id number] level. Sagittal STIR imaging demonstrates no focal area of osseous marrow edema. T12-L1:Mild bilateral facet hypertrophy with disc space narrowing and disc desiccation. No central ca nal or neural foraminal stenosis. L1-2:Mild bilateral facet hypertrophy with no central canal or neural foraminal stenosis. Mild disc s pace narrowing and disc desiccation. L2-3:There is disc space narrowing with disc desiccation and disc bulge. Prominent bilateral facet hy pertrophy and hypertrophy of the ligamentum flavum. Mild central canal stenosis. No significant neural foraminal stenosis. L3-4: Bilateral facet hypertrophy and hypertrophy of the ligamentum flavum, right greater than left. There is disc space narrowing with disc desiccation. Moderate right and mild left neural foraminal stenosis. Mild central canal stenosis with right lateral recess stenosis. L4-5:There is disc space narrowing with disc desiccation, disc bulge, and prominent bilateral facet h ypertrophy/hypertrophy of the ligamentum flavum. Severe central canal stenosis and moderate/severe bilateral neural foraminal stenosis, left greater than right. L5-S1:There is disc space narrowing and disc desiccation with disc bulge. There is a small left parac entral disc herniation causing significant left lateral recess stenosis and exerting mass effect on the left S1 nerve root. Bilateral facet hypertrophy and hypertrophy of the ligamentum flavum with mil d bilateral neural foraminal stenosis Image retroperitoneal structures demonstrateno acute findings. There is intrahepatic biliary dilatati on, presumably on the basis of prior cholecystectomy. Clinical correlation required. IMPRESSION: Multilevel lumbar spine degenerative change as detailed above, most prominent at the L4-5 level and o n the left at L5-S1.
== END 2020-01-20 14:37 | disposition home or self-care (01) ==
LOC: BICMRI 14:36
PROVIDERS: ATTEND Internal Medicine Rheumatology
DX: M54.32 Sciatica, left side (principal); M46.87 Other specified inflammatory spondylopathies, lumbosacral region; M47.816 Spondylosis without myelopathy or radiculopathy, lumbar region; M47.817 Spondylosis without myelopathy or radiculopathy, lumbosacral region
CPT/HCPCS: 72148

== ENCOUNTER 2020-12-14 13:39 | Outpatient (CLI) | payer MEDICARE, BC ==
[2020-12-14 15:24] LABS: Hemoglobin 12.6 g/dL (13.5-17.5); Mean Corpuscular HGB CONC 32.2 g/dL (32.0-36.0); Mean Corpuscular Hemoglobin 31.3 pg (27.0-33.0); Mean Corpuscular Volume 97.3 fl (81.2-95.1); Mean Platelet Volume 9.9 fl (7.4-10.4); Platelet Count 222 10x3/uL (150-450); RBC Distribution Width 13.3 % (11.5-14.5); Red Blood Cell (RBC) Count 4.02 10x6/uL (4.32-5.72); White Blood Cell (WBC) Count 6.3 10x3/uL (3.5-10.5)
[2020-12-14 15:38] LABS: Anion Gap 13 mmol/L (10-20); BUN (Urea Nitrogen) 20 mg/dL (8.4-25.7); Calc. Creatinine Clearance 0 mL/min (70-130); Calcium 9.2 mg/dL (7.8-10.44); Carbon Dioxide 26 mmol/L (23-31); Chloride 107 mmol/L (98-107); Glucose 92 mg/dL (83-110); Potassium 4.2 mmol/L (3.5-5.1); Sodium 142 mmol/L (136-145)
[2020-12-14 15:39] LABS: PTT 25.6 sec (22.0-33.0); Prothrombin Time 10.6 sec (9.5-12.1)
[2020-12-15 01:01] LABS: SARS-CoV-2 PCR by NAA Not Detected (NotDetected)
== END 2020-12-14 13:40 | disposition home or self-care (01) ==
LOC: LABBT 13:39
PROVIDERS: ATTEND Surgery
DX: Z01.818 Encounter for other preprocedural examination (principal); M48.062 Spinal stenosis, lumbar region with neurogenic claudication; M51.16 Intervertebral disc disorders with radiculopathy, lumbar region; Z20.822 Contact with and (suspected) exposure to COVID-19
CPT/HCPCS: 80048; 85027; 85610; 85730; 93005; U0003; U0005; 93010

== ENCOUNTER 2020-12-17 06:05 | Observation (INO) | payer MEDICARE, BC ==
[2020-12-16 10:45] VITALS: BMI 19.8
[2020-12-17] MEDS ORDERED: Fentanyl 250 MCG/5 ML VIAL ONE (06:54)
[2020-12-17] MEDS ORDERED: Thrombin 5000 UNITS/5 ML VIAL ONE (06:56)
[2020-12-17] MEDS ORDERED: ceFAZolin 2 GM/DEX 5% 100 ML BAG ONE (07:15)
[2020-12-17] MEDS ORDERED: Phenylephrine 10 MG/ML VIAL ONE (07:46)
[2020-12-17] MEDS ORDERED: Rocuronium Bromide 10 MG/ML (10ML VIAL) ONE (07:52)
[2020-12-17] MEDS ORDERED: Ondansetron PF 4 MG/2 ML Vial ONE (07:52)
[2020-12-17] MEDS ORDERED: Lidocaine 1% PF 5 ML VIAL ONE (07:52)
[2020-12-17] MEDS ORDERED: Dexamethasone 20 MG/5 ML VIAL ONE (07:52)
[2020-12-17] MEDS ORDERED: Glycopyrrolate 0.2 MG/ML 5 ML SYRINGE ONE (07:52)
[2020-12-17] MEDS ORDERED: PROPOFOL 200 MG/20 ML VIAL ONE (07:52)
[2020-12-17] MEDS ORDERED: HYDROcodone/Acetaminophen 7.5/325 mg Tablet PO PRN (10:46)
[2020-12-17] MEDS ORDERED: Morphine 2 MG/ML VIAL SLOW IVP PRN (10:46)
[2020-12-17] MEDS ORDERED: Polyethylene Glycol 3350 17 GM Packet PO PRN (10:49)
[2020-12-17] MEDS ORDERED: hydrALAZINE 20 MG/ML VIAL SLOW IVP PRN (10:50)
[2020-12-17] MEDS ORDERED: CEFAZOLIN 2 GM in Premix Bag 1 BAG IVPB SCH (11:00)
[2020-12-17] MEDS ORDERED: Fentanyl 100 MCG/2 ML VIAL ONE ×3 (11:01→14:19)
[2020-12-17] MEDS ORDERED: Morphine 4 MG/ML VIAL SLOW IVP PRN (12:22)
[2020-12-17] MEDS ORDERED: Morphine 4 MG/ML VIAL ONE ×2 (12:28→13:50)
[2020-12-17] MEDS ORDERED: ceFAZolin Sodium (SDC) 2 GM in Premix Bag 1 BAG IVPB SCH (14:00)
[2020-12-17] MEDS: Morphine 4 MG/ML VIAL SLOW IVP PRN ×3 (15:38→19:58)
[2020-12-17] MEDS: Gabapentin 100 MG CAP PO SCH ×2 (15:39→20:40)
[2020-12-17] MEDS: tiZANidine HCl 4 MG TAB PO PRN ×2 (15:55→23:23)
[2020-12-17] MEDS ORDERED: HYDROcodone/Acetaminophen 10/325 mg Tablet PO PRN ×2 (16:26→19:02)
[2020-12-17] MEDS: Sodium Chloride 0.9% 1,000 ML IV SCH (17:23)
[2020-12-17] MEDS: CEFAZOLIN 2 GM, Admixture Fee 1 EACH in Sodium Chloride 0.9% 100 ML IVPB SCH (17:23)
[2020-12-17] MEDS: Atorvastatin Calcium 20 MG TAB PO SCH (20:40)
[2020-12-17] MEDS: HYDROcodone/Acetaminophen 10/325 mg Tablet PO PRN (20:41)
[2020-12-18] MEDS: Morphine 4 MG/ML VIAL SLOW IVP PRN ×2 (00:33→12:38)
[2020-12-18] MEDS: CEFAZOLIN 2 GM, Admixture Fee 1 EACH in Sodium Chloride 0.9% 100 ML IVPB SCH (00:34)
[2020-12-18] MEDS: Sodium Chloride 0.9% 1,000 ML IV SCH ×2 (01:26→10:58)
[2020-12-18] MEDS: HYDROcodone/Acetaminophen 10/325 mg Tablet PO PRN ×3 (06:18→20:47)
[2020-12-18] MEDS: Acetaminophen/Codeine 30-300mg Tablet PO PRN ×2 (08:23→17:35)
[2020-12-18] MEDS: Amlodipine 5 MG TAB PO SCH (08:24)
[2020-12-18] MEDS: Multivit, Therapeutic 1 TAB PO SCH (08:25)
[2020-12-18] MEDS: Gabapentin 100 MG CAP PO SCH ×3 (08:25→20:45)
[2020-12-18] MEDS ORDERED: Albuterol Sulfate 2.5 mg/3 ml Neb NEB PRN (08:55)
[2020-12-18] MEDS ORDERED: Ketorolac Tromethamine 30 MG/ML VIAL IVP PRN (08:56)
[2020-12-18] MEDS ORDERED: Albuterol Sulfate 2.5 mg/3 ml Neb NEB SCH (09:00)
[2020-12-18] MEDS ORDERED: Amlodipine 10 MG TAB PO SCH (09:00)
[2020-12-18] MEDS ORDERED: Non-Formulary Item 1 EACH (Multivitamin [Multi-Vitamin Daily] 1 TABLET Tablet) PO SCH (09:00)
[2020-12-18] MEDS: tiZANidine HCl 4 MG TAB PO PRN ×2 (12:25→20:45)
[2020-12-18] MEDS: Atorvastatin Calcium 20 MG TAB PO SCH (20:45)
[2020-12-18] MEDS: traMADol HCl 50 MG TAB PO PRN (22:19)
[2020-12-18] MEDS: Acetaminophen 325 MG TAB PO PRN (22:20)
[2020-12-19] MEDS: Sodium Chloride 0.9% 1,000 ML IV SCH (00:20)
[2020-12-19] MEDS: tiZANidine HCl 4 MG TAB PO PRN (04:39)
[2020-12-19] MEDS: HYDROcodone/Acetaminophen 10/325 mg Tablet PO PRN (04:39)
[2020-12-19] MEDS: Morphine 4 MG/ML VIAL SLOW IVP PRN (05:13)
[2020-12-19 07:45] VITALS: BP 130/64; TEMP 97.7
[2020-12-19] MEDS: Multivit, Therapeutic 1 TAB PO SCH (08:13)
[2020-12-19] MEDS: Amlodipine 5 MG TAB PO SCH (08:13)
[2020-12-19] MEDS: Acetaminophen/Codeine 30-300mg Tablet PO PRN (08:13)
[2020-12-19] MEDS: Gabapentin 100 MG CAP PO SCH (08:14)
[2020-12-19] MEDS: Acetaminophen 325 MG TAB PO PRN (11:29)
[2020-12-19] MEDS: traMADol HCl 50 MG TAB PO PRN (11:29)
== END 2020-12-19 12:00 | disposition home or self-care (01) ==
LOC: SDC 06:05 → SJJU 10:46
PROVIDERS: ADMIT Surgery; ATTEND Surgery
PROC: 01NB0ZZ Release Lumbar Nerve, Open Approach (ICD-10-PCS; principal; 2020-12-17)
DX: M48.062 Spinal stenosis, lumbar region with neurogenic claudication (principal); M51.27 Other intervertebral disc displacement, lumbosacral region; M51.16 Intervertebral disc disorders with radiculopathy, lumbar region; E78.5 Hyperlipidemia, unspecified; I10 Essential (primary) hypertension; F17.210 Nicotine dependence, cigarettes, uncomplicated; I71.4 Abdominal aortic aneurysm, without rupture; M19.90 Unspecified osteoarthritis, unspecified site; Z87.11 Personal history of peptic ulcer disease; Z79.899 Other long term (current) drug therapy; Z88.2 Allergy status to sulfonamides; Z95.820 Peripheral vascular angioplasty status with implants and grafts
CPT/HCPCS: 71045; 76000; 96374; 96375; 96376; G0378; J0690; J1100; J1885; J2270; J2370; J2405; J2704; J3010; J3370; J3490; J7050; J7611

== ENCOUNTER 2021-02-09 14:02 | Outpatient (CLI) | payer MEDICARE, BC | END 2021-02-09 14:03 | disposition home or self-care (01) | LOC: BICULT 14:02 | PROVIDERS: ATTEND Internal Medicine Cardiovascular Disease | DX: R22.1 Localized swelling, mass and lump, neck (principal) | CPT/HCPCS: 76536 ==

== ENCOUNTER 2021-03-14 12:20 | Outpatient (CLI) | payer MEDICARE, BC | END 2021-03-14 12:21 | disposition home or self-care (01) | LOC: CT 12:20 | PROVIDERS: ATTEND Otolaryngology Plastic Surgery within the Head & Neck | DX: R22.1 Localized swelling, mass and lump, neck (principal); J43.2 Centrilobular emphysema | CPT/HCPCS: 70491; 82565 ==

== ENCOUNTER 2021-05-19 16:38 | Emergency (ER) | payer MEDICARE, BC ==
[2021-05-19] MEDS ORDERED: Fentanyl 100 MCG/2 ML VIAL ONE (18:08)
[2021-05-19] MEDS ORDERED: Ondansetron PF 4 MG/2 ML Vial ONE (18:08)
[2021-05-19 18:20] LABS: #Basophils 0.1 thou/uL (0.0-0.2); #Eosinphils 0.2 thou/uL (0.0-0.7); #Lymphocytes 1.8 thou/uL (1.20-3.40); #Monocytes 0.7 thou/uL (0.11-0.59); #Neutrophils 6.6 thou/uL (1.40-6.50); %Basophils 0.6 % (0.0-1.0); %Eosinophils 2.1 % (0.0-10.0); %Lymphocytes 19.2 % (21.0-51.0); %Monocytes 7.8 % (0.0-10.0); %Neutrophils 70.3 % (42.0-75.0); Hemoglobin 12.8 g/dL (14.0-18.0); Mean Corpuscular HGB CONC 32.4 g/dL (32.0-36.0); Mean Corpuscular Hemoglobin 33.1 pg (27.0-31.0); Mean Platelet Volume 7.1 fL (7.4-10.4); Platelet Count 242 thou/uL (130-400); RBC Distribution Width 13.5 % (11.5-14.5); Red Blood Cell (RBC) Count 3.87 mill/uL (4.70-6.10); White Blood Cell (WBC) Count 9.3 thou/uL (4.8-10.8)
[2021-05-19 18:44] LABS: ALT (SGPT) 13 U/L (8-55); AST (SGOT) 20 U/L (5-34); Alkaline Phosphatase 120 U/L (40-110); Anion Gap 13 mmol/L (10-20); BUN (Urea Nitrogen) 13 mg/dL (8.4-25.7); Bilirubin, Total 0.7 mg/dL (0.2-1.2); Calc. Creatinine Clearance 0 mL/min (70-130); Calcium 9.2 mg/dL (7.8-10.44); Carbon Dioxide 24 mmol/L (23-31); Chloride 105 mmol/L (98-107); Glucose 99 mg/dL (83-110); Lipase 6 U/L (8-78); Sodium 138 mmol/L (136-145)
[2021-05-19 19:26] LABS: Bacteria/HPF None Seen HPF (None Seen); Bilirubin Negative (Negative); Blood, Urine Negative (Negative); Clarity Clear (Clear); Glucose, Urine (Dipstick) Normal (Negative); Ketone, Urine Negative (Negative); Leukocyte Negative Leu/uL (Negative); Nitrite Negative (Negative); Protein, Urine (Dipstick) 30 mg/dL (Neg-Trace); RBC/HPF 0-3 HPF (0-3); Specific Gravity, Urine 1.005 (1.002-1.036); Squamous Epithelial None Seen HPF (0-3); Urobilinogen Normal mg/dL (Less than 2); WBC/HPF None Seen HPF (0-3)
== END 2021-05-19 21:35 | disposition home or self-care (01) ==
LOC: ERS 16:38
DX: K63.9 Disease of intestine, unspecified (principal); I10 Essential (primary) hypertension; Z87.891 Personal history of nicotine dependence
CPT/HCPCS: 74177; 80053; 81003; 81015; 83690; 85025; 96374; 96375; 99213; G0463; J2405; J3010

== ENCOUNTER 2021-08-04 08:58 | Outpatient (CLI) | payer MEDICARE, BC | END 2021-08-04 08:59 | disposition home or self-care (01) | LOC: BICRAD 08:58 | PROVIDERS: ATTEND Specialist | DX: M51.17 Intervertebral disc disorders with radiculopathy, lumbosacral region (principal); M47.816 Spondylosis without myelopathy or radiculopathy, lumbar region | CPT/HCPCS: 72110 ==

== ENCOUNTER 2021-09-15 09:03 | Emergency (ER) | payer MEDICARE, BC ==
[2021-09-15 09:35] LABS: #Basophils 0.1 thou/uL (0.0-0.2); #Eosinphils 0.1 thou/uL (0.0-0.7); #Lymphocytes 1.2 thou/uL (1.20-3.40); #Neutrophils 8.8 thou/uL (1.40-6.50); %Basophils 0.5 % (0.0-1.0); %Eosinophils 1.1 % (0.0-10.0); %Lymphocytes 10.6 % (21.0-51.0); %Monocytes 9.3 % (0.0-10.0); %Neutrophils 78.6 % (42.0-75.0); Hemoglobin 13.6 g/dL (14.0-18.0); Mean Corpuscular HGB CONC 32.2 g/dL (32.0-36.0); Mean Corpuscular Hemoglobin 33.4 pg (27.0-31.0); Mean Platelet Volume 7.1 fL (7.4-10.4); Platelet Count 261 thou/uL (130-400); RBC Distribution Width 12.1 % (11.5-14.5); Red Blood Cell (RBC) Count 4.09 mill/uL (4.70-6.10); White Blood Cell (WBC) Count 11.2 thou/uL (4.8-10.8)
[2021-09-15 09:57] LABS: ALT (SGPT) 15 U/L (8-55); AST (SGOT) 22 U/L (5-34); Albumin 4.1 g/dL (3.4-4.8); Alkaline Phosphatase 95 U/L (40-110); Anion Gap 13 mmol/L (10-20); BUN (Urea Nitrogen) 17 mg/dL (8.4-25.7); Calc. Creatinine Clearance 0 mL/min (70-130); Calcium 9.5 mg/dL (7.8-10.44); Carbon Dioxide 25 mmol/L (23-31); Chloride 103 mmol/L (98-107); Estimated GFR 91; Glucose 148 mg/dL (83-110); Potassium 4.2 mmol/L (3.5-5.1); Protein, Total 7.1 g/dL (5.8-8.1); Sodium 137 mmol/L (136-145)
[2021-09-15] MEDS ORDERED: Iopamidol-370 76% 500 ML 1 ML ONE (11:23)
[2021-09-15] MEDS ORDERED: Ketorolac Tromethamine 30 MG/ML VIAL ONE (14:24)
== END 2021-09-15 14:51 | disposition home or self-care (01) ==
LOC: ERS 09:03
DX: R22.1 Localized swelling, mass and lump, neck (principal); I10 Essential (primary) hypertension; E78.5 Hyperlipidemia, unspecified; Z87.891 Personal history of nicotine dependence; Z79.899 Other long term (current) drug therapy
CPT/HCPCS: 36415; 70491; 80053; 85025; 96374; J1885; Q9967

== ENCOUNTER → 2021-10-13 | Day surgery (SDC) | payer MEDICARE, BC ==
[2021-10-11 15:21] VITALS: BMI 19.1
[~2021-10-13] MED LIST changes: +Bacitracin Zinc Ointment 30 gm TUBE ONE; +Bupivacaine/Epinephrine 0.25% 30 ML VIAL ONE; +Dexamethasone 20 MG/5 ML VIAL ONE; +Glycopyrrolate 0.2 MG/ML 5 ML SYRINGE ONE; +HYDROcodone/Acetaminophen 5/325 mg Tablet ONE; +NEOSTIGMINE 3 MG/3 ML SYR 3 MG/3 ML SYRINGE ONE; +Ondansetron PF 4 MG/2 ML Vial ONE; +PROPOFOL 200 MG/20 ML VIAL ONE; +Phenylephrine 10 MG/ML VIAL ONE; +Rocuronium Bromide 10 MG/ML (10ML VIAL) ONE; -Sodium Chloride 0.9% 15 ML NEB ONE; +ePHEDrine 50 MG/ML VIAL ONE; +fentaNYL Citrate/PF 100 MCG/2 ML SYRINGE ONE
== END | disposition home or self-care (01) ==
LOC: SDC 08:45
PROVIDERS: ATTEND Specialist
PROC: 0CB90ZZ Excision of Left Parotid Gland, Open Approach (ICD-10-PCS; principal; 2021-10-13)
DX: D11.0 Benign neoplasm of parotid gland (principal); L72.0 Epidermal cyst; M19.90 Unspecified osteoarthritis, unspecified site; E78.5 Hyperlipidemia, unspecified; I10 Essential (primary) hypertension; Z87.891 Personal history of nicotine dependence; Z79.82 Long term (current) use of aspirin; Z79.899 Other long term (current) drug therapy; Z88.0 Allergy status to penicillin; Z88.2 Allergy status to sulfonamides
CPT/HCPCS: 42410; C1713; C1776; 88304; 88305; 88312; J1100; J2370; J2405; J2704; J3490

== ENCOUNTER 2021-10-17 23:21 | Inpatient (IN) | payer MEDICARE, BC ==
[2021-10-17] MEDS ORDERED: Cefepime 2 GM VIAL ONE (23:42)
[2021-10-18 00:06] LABS: Hemoglobin 9.8 g/dL (14.0-18.0); Mean Corpuscular HGB CONC 34.9 g/dL (32.0-36.0); Mean Corpuscular Hemoglobin 36.1 pg (27.0-31.0); Mean Platelet Volume 7.7 fL (7.4-10.4); Platelet Count 118 thou/uL (130-400); RBC Distribution Width 12.4 % (11.5-14.5); Red Blood Cell (RBC) Count 2.72 mill/uL (4.70-6.10); White Blood Cell (WBC) Count 7.4 thou/uL (4.8-10.8)
[2021-10-18] MEDS ORDERED: Vancomycin 1 GM/200 ML BAG ONE (00:16)
[2021-10-18 00:33] LABS: ALT (SGPT) 50 U/L (8-55); AST (SGOT) 85 U/L (5-34); Albumin 3.6 g/dL (3.4-4.8); Alkaline Phosphatase 115 U/L (40-110); Anion Gap 19 mmol/L (10-20); BUN (Urea Nitrogen) 26 mg/dL (8.4-25.7); Band 7 % (5-11); Bilirubin, Total 0.8 mg/dL (0.2-1.2); Burr Cells SLIGHT = 2-5 cells (100X) (0-1/hpf); Calc. Creatinine Clearance 0 mL/min (70-130); Calcium 9.1 mg/dL (7.8-10.44); Carbon Dioxide 20 mmol/L (23-31); Chloride 105 mmol/L (98-107); Estimated GFR 65; Globulin 3.2 g/dL (2.4-3.5); Glucose 90 mg/dL (83-110); Lymphocytes 8 % (21-51); MDiff Complete? YES; Macrocytosis SLIGHT = 6-15 cells (100X) (0-5/hpf); Magnesium 1.4 mg/dL (1.6-2.6); Neutrophil 85 % (42-75); Ovalocytes SLIGHT = 2-5 cells (100X) (0-1/hpf); Platelet Morphology Comment Appears Decreased; Protein, Total 6.8 g/dL (5.8-8.1); Sodium 139 mmol/L (136-145)
[2021-10-18 00:40] LABS: SARS-CoV-2 NAA Rapid Test Not Detected (NotDetected)
[2021-10-18 00:48] LABS: CKMB 1.7 ng/mL (0-6.6)
[2021-10-18] MEDS ORDERED: Aspirin Chewable 81 MG TAB ONE (01:15)
[2021-10-18] MEDS ORDERED: Albuterol 200 PUFF (6.7GM INHALER) ONE (02:08)
[2021-10-18 03:26] LABS: Lactic Acid 2.3 mmol/L (0.5-2.2)
[2021-10-18 03:34] LABS: Troponin I 0.176 ng/mL (< 0.028)
[2021-10-18] MEDS ORDERED: Ondansetron PF 4 MG/2 ML Vial IVP PRN (05:28)
[2021-10-18] MEDS ORDERED: Magnesium 2 GM/50 ML(in water) 2 GM in Premix Bag 1 BAG IVPB SCH (05:45)
[2021-10-18] MEDS ORDERED: Sodium Chloride 0.9% 1,000 ML IV SCH (05:45)
[2021-10-18] MEDS ORDERED: Magnesium 2 GM/50 ML BAG (IN WATER) ONE (06:06)
[2021-10-18] MEDS ORDERED: HYDROcodone/Acetaminophen 10/325 mg Tablet ONE ×3 (06:19→17:05)
[2021-10-18] MEDS: HYDROcodone/Acetaminophen 10/325 mg Tablet PO PRN ×4 (06:27→23:44)
[2021-10-18 06:57] LABS: Troponin I 0.092 ng/mL (< 0.028)
[2021-10-18 06:59] LABS: Lactic Acid 2.4 mmol/L (0.5-2.2)
[2021-10-18 07:00] LABS: ALT (SGPT) 58 U/L (8-55); AST (SGOT) 78 U/L (5-34); Albumin 3.2 g/dL (3.4-4.8); Alkaline Phosphatase 104 U/L (40-110); Anion Gap 17 mmol/L (10-20); BUN (Urea Nitrogen) 23 mg/dL (8.4-25.7); Bilirubin, Direct 0.3 mg/dL (0.1-0.3); Bilirubin, Total 0.6 mg/dL (0.2-1.2); Calc. Creatinine Clearance 0 mL/min (70-130); Carbon Dioxide 17 mmol/L (23-31); Chloride 111 mmol/L (98-107); Estimated GFR 90; Glucose 85 mg/dL (83-110); Magnesium 1.3 mg/dL (1.6-2.6); Potassium 3.5 mmol/L (3.5-5.1); Protein, Total 5.7 g/dL (5.8-8.1); Sodium 141 mmol/L (136-145)
[2021-10-18 07:43] LABS: Hemoglobin 11.9 g/dL (14.0-18.0); Mean Corpuscular HGB CONC 31.8 g/dL (32.0-36.0); Mean Corpuscular Hemoglobin 33.6 pg (27.0-31.0); Mean Platelet Volume 8.4 fL (7.4-10.4); Platelet Count 136 thou/uL (130-400); RBC Distribution Width 12.7 % (11.5-14.5); Red Blood Cell (RBC) Count 3.53 mill/uL (4.70-6.10); White Blood Cell (WBC) Count 23.8 thou/uL (4.8-10.8)
[2021-10-18 08:15] LABS: Band 27 % (5-11); Burr Cells SLIGHT = 2-5 cells (100X) (0-1/hpf); Hypochromia SLIGHT = 6-15 cells (100X) (0-5/hpf); Lymphocytes 2 % (21-51); MDiff Complete? YES; Macrocytosis SLIGHT = 6-15 cells (100X) (0-5/hpf); Monocytes 4 % (0-10); Neutrophil 66 % (42-75); Platelet Morphology Comment Appears Adequate; Reactive Lymphocytes 1 % (0-10); Tear Drops SLIGHT = 2-5 cells (100X) (0-1/hpf)
[2021-10-18] MEDS ORDERED: Cefepime 1 GM VIAL ONE (12:03)
[2021-10-18] MEDS: Cefepime 1 GM in Sodium Chloride 0.9% 100 ML IVPB SCH ×2 (12:23→23:54)
[2021-10-18] MEDS ORDERED: Iopamidol-370 76% 500 ML 1 ML ONE (12:49)
[2021-10-18 13:01] LABS: Bacteria/HPF None Seen HPF (None Seen); Bilirubin Negative (Negative); Blood, Urine Trace (Negative); Clarity Clear (Clear); Glucose, Urine (Dipstick) Normal (Negative); Ketone, Urine Negative (Negative); Leukocyte Negative Leu/uL (Negative); Nitrite Negative (Negative); Protein, Urine (Dipstick) 70 mg/dL (Neg-Trace); RBC/HPF 0-3 HPF (0-3); Specific Gravity, Urine 1.046 (1.002-1.036); Squamous Epithelial 0-3 HPF (0-3); Urobilinogen Normal mg/dL (Less than 2); WBC/HPF 0-3 HPF (0-3); pH, Urine 5.5 (5.0-9.0)
[2021-10-18 13:02] LABS: Urine Culture Reflex No No
[2021-10-18] MEDS ORDERED: Vancomycin 1.5 GRAM/300 ML BAG 1.5 GM in Premix Bag 1 BAG IVPB SCH (16:00)
[2021-10-18 19:39] VITALS: BMI 17.4
[2021-10-18] MEDS: Acetaminophen 325 MG TAB PO PRN (23:45)
[2021-10-19 05:12] LABS: Hemoglobin 10.2 g/dL (14.0-18.0); Mean Corpuscular HGB CONC 33.5 g/dL (32.0-36.0); Mean Corpuscular Hemoglobin 34.5 pg (27.0-31.0); Mean Platelet Volume 8.8 fL (7.4-10.4); Platelet Count 98 thou/uL (130-400); RBC Distribution Width 12.8 % (11.5-14.5); Red Blood Cell (RBC) Count 2.95 mill/uL (4.70-6.10); White Blood Cell (WBC) Count 18.9 thou/uL (4.8-10.8)
[2021-10-19 05:13] LABS: Band 26 % (5-11); Hypochromia SLIGHT = 6-15 cells (100X) (0-5/hpf); Lymphocytes 5 % (21-51); MDiff Complete? YES; Macrocytosis SLIGHT = 6-15 cells (100X) (0-5/hpf); Monocytes 3 % (0-10); Neutrophil 66 % (42-75); Platelet Morphology Comment Appears Decreased
[2021-10-19 05:16] LABS: Anion Gap 11 mmol/L (10-20); BUN (Urea Nitrogen) 22 mg/dL (8.4-25.7); Calc. Creatinine Clearance 75 mL/min (70-130); Calcium 7.7 mg/dL (7.8-10.44); Carbon Dioxide 19 mmol/L (23-31); Chloride 110 mmol/L (98-107); Estimated GFR 96; Glucose 81 mg/dL (83-110); Magnesium 2.1 mg/dL (1.6-2.6); Potassium 3.3 mmol/L (3.5-5.1); Sodium 137 mmol/L (136-145)
[2021-10-19] MEDS: HYDROcodone/Acetaminophen 10/325 mg Tablet PO PRN ×6 (05:55→23:03)
[2021-10-19] MEDS: Acetaminophen 325 MG TAB PO PRN (05:56)
[2021-10-19] MEDS: Cefepime 2 GM in Sodium Chloride 0.9% 100 ML IVPB SCH ×2 (11:24→23:04)
[2021-10-19 12:07] LABS: Campy jejuni + coli by PCR Negative (Negative); STEC Shiga Toxin 1+2 Negative (Negative); Salmonella spp. by PCR Negative (Negative); Shigella spp + EIEC by PCR Negative (Negative)
[2021-10-19] MEDS ORDERED: Lactated Ringer's 1,000 ML IV SCH (14:00)
[2021-10-19] MEDS: Enoxaparin Sodium 40 MG/0.4 ML SYRINGE SC SCH (20:39)
[2021-10-19] MEDS: tiZANidine HCl 4 MG TAB PO PRN (23:04)
[2021-10-20] MEDS: HYDROcodone/Acetaminophen 10/325 mg Tablet PO PRN ×8 (03:55→20:37)
[2021-10-20 04:45] LABS: #Basophils 0.1 thou/uL (0.0-0.2); #Eosinphils 0.4 thou/uL (0.0-0.7); #Lymphocytes 1.4 thou/uL (1.20-3.40); #Monocytes 0.6 thou/uL (0.11-0.59); #Neutrophils 10.4 thou/uL (1.40-6.50); %Basophils 0.5 % (0.0-1.0); %Eosinophils 3.2 % (0.0-10.0); %Lymphocytes 10.8 % (21.0-51.0); %Monocytes 4.6 % (0.0-10.0); %Neutrophils 80.9 % (42.0-75.0); Hemoglobin 11.1 g/dL (14.0-18.0); Mean Corpuscular HGB CONC 32.9 g/dL (32.0-36.0); Mean Corpuscular Hemoglobin 33.9 pg (27.0-31.0); Mean Platelet Volume 8.9 fL (7.4-10.4); Platelet Count 93 thou/uL (130-400); RBC Distribution Width 12.7 % (11.5-14.5); Red Blood Cell (RBC) Count 3.28 mill/uL (4.70-6.10); White Blood Cell (WBC) Count 12.9 thou/uL (4.8-10.8)
[2021-10-20 05:08] LABS: Anion Gap 13 mmol/L (10-20); BUN (Urea Nitrogen) 15 mg/dL (8.4-25.7); Calc. Creatinine Clearance 77 mL/min (70-130); Calcium 8.7 mg/dL (7.8-10.44); Carbon Dioxide 21 mmol/L (23-31); Chloride 108 mmol/L (98-107); Estimated GFR 97; Glucose 82 mg/dL (83-110); Magnesium 1.8 mg/dL (1.6-2.6); Potassium 3.4 mmol/L (3.5-5.1); Sodium 139 mmol/L (136-145)
[2021-10-20] MEDS: Gabapentin 100 MG CAP PO SCH ×3 (10:37→20:37)
[2021-10-20] MEDS: Lisinopril 10 MG TAB PO SCH (10:37)
[2021-10-20] MEDS: Atorvastatin Calcium 20 MG TAB PO SCH (10:38)
[2021-10-20] MEDS: cefTRIAXone\\ROCEPHIN 2 GM in Sodium Chloride 0.9% 100 ML IVPB SCH (12:09)
[2021-10-20] MEDS: Enoxaparin Sodium 40 MG/0.4 ML SYRINGE SC SCH (20:38)
[2021-10-21] MEDS: HYDROcodone/Acetaminophen 10/325 mg Tablet PO PRN ×5 (00:30→13:36)
[2021-10-21] MEDS: tiZANidine HCl 4 MG TAB PO PRN (00:31)
[2021-10-21 04:35] LABS: #Eosinphils 0.5 thou/uL (0.0-0.7); #Monocytes 0.7 thou/uL (0.11-0.59); #Neutrophils 3.7 thou/uL (1.40-6.50); %Basophils 0.7 % (0.0-1.0); %Eosinophils 6.6 % (0.0-10.0); %Lymphocytes 29.1 % (21.0-51.0); %Neutrophils 53.6 % (42.0-75.0); Hemoglobin 10.4 g/dL (14.0-18.0); Mean Corpuscular HGB CONC 33.1 g/dL (32.0-36.0); Mean Corpuscular Hemoglobin 34.2 pg (27.0-31.0); Mean Platelet Volume 9.1 fL (7.4-10.4); Platelet Count 91 thou/uL (130-400); RBC Distribution Width 12.5 % (11.5-14.5); Red Blood Cell (RBC) Count 3.05 mill/uL (4.70-6.10); White Blood Cell (WBC) Count 6.9 thou/uL (4.8-10.8)
[2021-10-21 04:48] LABS: Anion Gap 13 mmol/L (10-20); BUN (Urea Nitrogen) 19 mg/dL (8.4-25.7); Calc. Creatinine Clearance 66 mL/min (70-130); Calcium 8.6 mg/dL (7.8-10.44); Carbon Dioxide 24 mmol/L (23-31); Chloride 106 mmol/L (98-107); Estimated GFR 93; Glucose 85 mg/dL (83-110); Magnesium 1.8 mg/dL (1.6-2.6); Potassium 3.5 mmol/L (3.5-5.1); Sodium 139 mmol/L (136-145)
[2021-10-21] MEDS: Atorvastatin Calcium 20 MG TAB PO SCH (08:41)
[2021-10-21] MEDS: Lisinopril 10 MG TAB PO SCH (08:42)
[2021-10-21] MEDS: Gabapentin 100 MG CAP PO SCH (08:42)
[2021-10-21] MEDS ORDERED: Folic Acid 1 MG TAB PO SCH (09:00)
[2021-10-21] MEDS ORDERED: Amlodipine 5 MG TAB PO SCH (09:00)
[2021-10-21] MEDS: cefTRIAXone\\ROCEPHIN 2 GM in Sodium Chloride 0.9% 100 ML IVPB SCH (10:52)
[2021-10-21 12:03] VITALS: BP 153/74; TEMP 98.4
== END 2021-10-21 14:40 | disposition home or self-care (01) | DRG 871 ==
LOC: ERS 23:21 → OBSVTOIN 10-18 02:22 → ERHOLD 10-18 02:22 → 2NO 10-18 18:30
PROVIDERS: ADMIT Family Medicine; ATTEND Family Medicine
DX: A41.9 Sepsis, unspecified organism (principal); R65.20 Severe sepsis without septic shock; Z20.822 Contact with and (suspected) exposure to COVID-19; G93.41 Metabolic encephalopathy; E87.2 Acidosis; C34.32 Malignant neoplasm of lower lobe, left bronchus or lung; Z16.23 Resistance to quinolones and fluoroquinolones; E44.0 Moderate protein-calorie malnutrition; Z68.1 Body mass index [BMI] 19.9 or less, adult; D64.9 Anemia, unspecified; D69.6 Thrombocytopenia, unspecified; E83.42 Hypomagnesemia; G89.29 Other chronic pain; E78.5 Hyperlipidemia, unspecified; M54.50 Low back pain, unspecified; M19.90 Unspecified osteoarthritis, unspecified site; R77.8 Other specified abnormalities of plasma proteins; B95.4 Other streptococcus as the cause of diseases classified elsewhere; Z88.2 Allergy status to sulfonamides; Z79.899 Other long term (current) drug therapy; Z79.82 Long term (current) use of aspirin; Z98.1 Arthrodesis status; Z90.49 Acquired absence of other specified parts of digestive tract; Z82.41 Family history of sudden cardiac death; Z87.891 Personal history of nicotine dependence
CPT/HCPCS: 36415; 71045; 71275; 80048; 80053; 81001; 82553; 83605; 83735; 84145; 84484; 85025; 87040; 87086; 87149; 87324; 87449; 87493; 87505; 93005; 93010; 96361; 96365; 96367; J0692; J0696; J3370; J3475; J3490; J7050; J7120; Q9967

== ENCOUNTER 2022-01-19 09:41 | Day surgery (SDC) | payer MEDICARE, BC ==
[2022-01-19] MEDS ORDERED: Bupivacaine HCl 0.5%/Epinephrine 1:200,000/PF 30 ml Vial ONE (11:43)
[2022-01-19] MEDS ORDERED: Levofloxacin 500 mg/D5W 100 ml Premix Bag ONE (12:07)
[2022-01-19] MEDS ORDERED: Midazolam HCl 2 mg/2 ml Vial ONE (12:09)
[2022-01-19] MEDS ORDERED: fentaNYL PF 100 MCG/2 ML SYRINGE ONE (12:09)
[2022-01-19] MEDS ORDERED: Phenylephrine 10 MG/ML VIAL ONE (12:28)
[2022-01-19] MEDS ORDERED: Ketorolac Tromethamine 30 MG/ML VIAL ONE (12:28)
[2022-01-19] MEDS ORDERED: Dexamethasone 20 MG/5 ML VIAL ONE (12:28)
[2022-01-19] MEDS ORDERED: PHENYLEPHRINE-NS 100 MCG/ML 10 ML SYRINGE ONE (12:48)
[2022-01-19] MEDS ORDERED: FENTANYL 50 MCG/ML 1 ML VIAL ONE ×2 (14:18→14:25)
[2022-01-19] MEDS ORDERED: HYDROcodone/Acetaminophen 5/325 mg Tablet ONE (15:02)
== END 2022-01-19 15:25 | disposition home or self-care (01) ==
LOC: SDC 09:41
PROVIDERS: ATTEND Specialist
PROC: 0JH70DZ Insertion of Multiple Array Stimulator Generator into Back Subcutaneous Tissue and Fascia, Open Approach (ICD-10-PCS; principal; 2022-01-19)
PROC: 00HU3MZ Insertion of Neurostimulator Lead into Spinal Canal, Percutaneous Approach (ICD-10-PCS; 2022-01-19)
DX: M96.1 Postlaminectomy syndrome, not elsewhere classified (principal); G89.4 Chronic pain syndrome; M51.17 Intervertebral disc disorders with radiculopathy, lumbosacral region; M48.062 Spinal stenosis, lumbar region with neurogenic claudication; G56.32 Lesion of radial nerve, left upper limb; K59.03 Drug induced constipation; M19.90 Unspecified osteoarthritis, unspecified site; E78.5 Hyperlipidemia, unspecified; I10 Essential (primary) hypertension; F17.210 Nicotine dependence, cigarettes, uncomplicated; Z79.82 Long term (current) use of aspirin; Z79.899 Other long term (current) drug therapy; Z88.0 Allergy status to penicillin; Z88.1 Allergy status to other antibiotic agents; Z88.2 Allergy status to sulfonamides; Z98.890 Other specified postprocedural states
CPT/HCPCS: 63650 ×2; 63685; 72020; C1713; C1778; C1820; J3010; J1100; J1885; J1956; J2250; J2370

== ENCOUNTER 2022-01-26 09:58 | Outpatient (CLI) | payer MEDICARE, BC | END 2022-01-26 09:59 | disposition home or self-care (01) | LOC: BICCT 09:58 | PROVIDERS: ATTEND Internal Medicine Critical Care Medicine | DX: R91.1 Solitary pulmonary nodule (principal); J43.9 Emphysema, unspecified | CPT/HCPCS: 71250 ==

== ENCOUNTER → 2022-02-16 | Outpatient (CLI) | payer MEDICARE, BC | LOC: PET 09:30 | PROVIDERS: ATTEND Internal Medicine Critical Care Medicine | DX: R91.8 Other nonspecific abnormal finding of lung field (principal) | CPT/HCPCS: 78815; A9552 ==

== ENCOUNTER 2022-03-09 08:38 | Day surgery (SDC) | payer MEDICARE, BC ==
[2022-03-08 07:25] VITALS: BMI 19.6
[~2022-03-09 08:38] MED LIST changes: -Bacitracin Zinc Ointment 30 gm TUBE ONE; -Bupivacaine/Epinephrine 0.25% 30 ML VIAL ONE; -Dexamethasone 20 MG/5 ML VIAL ONE; +FLU VACC QS2022-23(65YR UP)/PF 240 MCG/0.7 ML SYRINGE IM ONE; -Glycopyrrolate 0.2 MG/ML 5 ML SYRINGE ONE; -HYDROcodone/Acetaminophen 5/325 mg Tablet ONE; -NEOSTIGMINE 3 MG/3 ML SYR 3 MG/3 ML SYRINGE ONE; -Ondansetron PF 4 MG/2 ML Vial ONE; -PROPOFOL 200 MG/20 ML VIAL ONE; -Phenylephrine 10 MG/ML VIAL ONE; -Rocuronium Bromide 10 MG/ML (10ML VIAL) ONE; -ePHEDrine 50 MG/ML VIAL ONE; -fentaNYL Citrate/PF 100 MCG/2 ML SYRINGE ONE
[2022-03-09 08:44] LABS: #Basophils 0.1 thou/uL (0.0-0.2); #Eosinphils 0.7 thou/uL (0.0-0.7); #Lymphocytes 2.8 thou/uL (1.20-3.40); #Monocytes 0.9 thou/uL (0.11-0.59); #Neutrophils 3.4 thou/uL (1.40-6.50); %Basophils 1.1 % (0.0-1.0); %Eosinophils 8.6 % (0.0-10.0); %Lymphocytes 35.5 % (21.0-51.0); %Monocytes 11.5 % (0.0-10.0); %Neutrophils 43.4 % (42.0-75.0); Hemoglobin 12.6 g/dL (14.0-18.0); Mean Corpuscular HGB CONC 32.2 g/dL (32.0-36.0); Mean Corpuscular Hemoglobin 32.4 pg (27.0-31.0); Mean Platelet Volume 7.8 fL (7.4-10.4); Platelet Count 214 10x3/uL (130-400); RBC Distribution Width 12.8 % (11.5-14.5); White Blood Cell (WBC) Count 7.9 10x3/uL (4.8-10.8)
[2022-03-09 09:00] LABS: PTT 29.7 sec (22.9-36.1); Prothrombin Time 13.2 sec (12.0-14.7)
[2022-03-09 09:39] VITALS: BP 170/74; TEMP 97.5
[2022-03-09] MEDS ORDERED: Sodium Bicarbonate 2.5 MEQ/5 ML VIAL ONE (10:17)
[2022-03-09] MEDS ORDERED: Fentanyl 100 MCG/2 ML VIAL ONE (10:17)
[2022-03-09] MEDS ORDERED: Midazolam HCl 2 mg/2 ml Vial ONE (10:17)
== END 2022-03-09 14:05 | disposition home or self-care (01) ==
LOC: CT 08:38
PROVIDERS: ATTEND Internal Medicine Critical Care Medicine
PROC: 0BBJ3ZX Excision of Left Lower Lung Lobe, Percutaneous Approach, Diagnostic (ICD-10-PCS; principal; 2022-03-09)
DX: C34.32 Malignant neoplasm of lower lobe, left bronchus or lung (principal); J44.9 Chronic obstructive pulmonary disease, unspecified; M19.90 Unspecified osteoarthritis, unspecified site; E78.5 Hyperlipidemia, unspecified; I10 Essential (primary) hypertension; F17.210 Nicotine dependence, cigarettes, uncomplicated; Z79.82 Long term (current) use of aspirin; Z79.899 Other long term (current) drug therapy; Z88.0 Allergy status to penicillin; Z88.2 Allergy status to sulfonamides
CPT/HCPCS: 32408; 71045; 77012; 85025; 85610; 85730; 88305; 88333; 88341; 88342; J2250; J3010

== ENCOUNTER 2022-03-23 09:08 | Outpatient (CLI) | payer MEDICARE, BC ==
[2022-03-23] MEDS ORDERED: Iopamidol 370 76% 100 ML VIAL ONE (14:33)
== END 2022-03-23 09:09 | disposition home or self-care (01) ==
LOC: CT 09:08
PROVIDERS: ATTEND Radiology Radiation Oncology
DX: C34.90 Malignant neoplasm of unspecified part of unspecified bronchus or lung (principal); I67.82 Cerebral ischemia
CPT/HCPCS: 70470; 82565

== ENCOUNTER 2022-09-18 09:19 | Outpatient (CLI) | payer MEDICARE, BC ==
[~2022-09-18 09:19] MED LIST changes: -FLU VACC QS2022-23(65YR UP)/PF 240 MCG/0.7 ML SYRINGE IM ONE; +Iopamidol 370 76% 100 ML VIAL ONE
== END 2022-09-18 09:20 | disposition home or self-care (01) ==
LOC: CT 09:19
PROVIDERS: ATTEND Radiology Radiation Oncology
DX: C34.11 Malignant neoplasm of upper lobe, right bronchus or lung (principal); C34.32 Malignant neoplasm of lower lobe, left bronchus or lung; R91.8 Other nonspecific abnormal finding of lung field
CPT/HCPCS: 71260; 82565; Q9967

== ENCOUNTER 2023-03-29 09:10 | Outpatient (CLI) | payer MEDICARE | END 2023-03-29 09:11 | disposition home or self-care (01) | LOC: CT 09:10 | PROVIDERS: ATTEND Radiology Radiation Oncology | DX: C34.11 Malignant neoplasm of upper lobe, right bronchus or lung (principal); C34.32 Malignant neoplasm of lower lobe, left bronchus or lung; R91.8 Other nonspecific abnormal finding of lung field | CPT/HCPCS: 71260; 82565 ==

== ENCOUNTER 2024-01-08 10:15 | Outpatient (CLI) | payer MEDICARE | END 2024-01-08 10:16 | disposition home or self-care (01) | LOC: PET 10:15 | PROVIDERS: ATTEND Internal Medicine Critical Care Medicine | DX: R91.8 Other nonspecific abnormal finding of lung field (principal); J98.4 Other disorders of lung; R59.0 Localized enlarged lymph nodes | CPT/HCPCS: 78815; A9552 ==

== ENCOUNTER 2024-02-04 13:58 | Outpatient (CLI) | payer MEDICARE ==
[2024-02-04 16:27] LABS: #Basophils 0.04 10x3/uL (0.0-0.2); %Basophils 0.6 % (0.0-1.0); %Eosinophils 4.9 % (0.0-10.0); %Lymphocytes 26.7 % (21.0-51.0); %Monocytes 9.1 % (0.0-10.0); %Neutrophils 58.6 % (42.0-75.0); Hematocrit 36.8 % (42.0-52.0); Hemoglobin 11.9 g/dL (14.0-18.0); Mean Corpuscular HGB CONC 32.3 g/dL (32.0-36.0); Mean Corpuscular Volume 98.9 fL (78.0-98.0); Mean Platelet Volume 9.7 fL (7.4-10.4); Platelet Count 216 10x3/uL (130-400); RBC Distribution Width 14.6 % (11.5-14.5); Red Blood Cell (RBC) Count 3.72 mill/uL (4.70-6.10)
[2024-02-04 16:39] LABS: Anion Gap 12 mmol/L (10-20); BUN (Urea Nitrogen) 27 mg/dL (8.4-25.7); Calc. Creatinine Clearance 0 mL/min (70-130); Calcium 9.5 mg/dL (7.8-10.44); Carbon Dioxide 25 mmol/L (23-31); Chloride 108 mmol/L (98-107); Estimated GFR 89; Glucose 117 mg/dL (83-110); Potassium 4.5 mmol/L (3.5-5.1); Sodium 140 mmol/L (136-145)
== END 2024-02-04 13:59 | disposition home or self-care (01) ==
LOC: LABBT 13:58
PROVIDERS: ATTEND Student in an Organized Health Care Education/Training Program
DX: Z01.818 Encounter for other preprocedural examination (principal); C34.11 Malignant neoplasm of upper lobe, right bronchus or lung; R91.1 Solitary pulmonary nodule; J98.4 Other disorders of lung
CPT/HCPCS: 71046; 80048; 85025; 86850; 86900; 86901; 93005; 93010

== ENCOUNTER 2024-02-04 14:30 | Inpatient (IN) | payer MEDICARE ==
[2024-02-08] MEDS ORDERED: Fentanyl 250 MCG/5 ML VIAL ONE (06:19)
[2024-02-08] MEDS ORDERED: Rocuronium Bromide 10 MG/ML (10ML VIAL) ONE (06:19)
[2024-02-08] MEDS ORDERED: PROPOFOL 20 ML ONE (06:19)
[2024-02-08] MEDS ORDERED: Dexamethasone 4 mg/ml Vial ONE (06:19)
[2024-02-08] MEDS ORDERED: SUGAMMADEX SODIUM 200 MG/2 ML VIAL ONE (06:19)
[2024-02-08] MEDS ORDERED: Lidocaine 1% PF 5 ML VIAL ONE (06:19)
[2024-02-08] MEDS ORDERED: Ondansetron PF 4 MG/2 ML Vial ONE (06:19)
[2024-02-08] MEDS ORDERED: Lidocaine 1% MPF 2 ML VIAL ONE (06:19)
[2024-02-08] MEDS ORDERED: Phenylephrine 10 MG/ML VIAL ONE (06:26)
[2024-02-08] MEDS ORDERED: Bupivacaine PF 0.5% 30 ML VIAL ONE ×2 (06:34→06:39)
[2024-02-08] MEDS ORDERED: EPINEPHrine 1 MG/ML VIAL ONE (06:34)
[2024-02-08] MEDS ORDERED: CEFAZOLIN 2 GM VIAL ONE (07:10)
[2024-02-08] MEDS ORDERED: Etomidate 40 MG (20 mL) VIAL ONE (07:37)
[2024-02-08] MEDS ORDERED: PHENYLEPHRINE-NS 100 MCG/ML 10 ML SYRINGE ONE (07:59)
[2024-02-08] MEDS ORDERED: Promethazine HCl 25 MG/ML VIAL IM PRN (10:58)
[2024-02-08] MEDS ORDERED: Ondansetron PF 4 MG/2 ML Vial IVP PRN (10:58)
[2024-02-08] MEDS ORDERED: hydrALAZINE 20 MG/ML VIAL SLOW IVP PRN (10:58)
[2024-02-08] MEDS ORDERED: Ipratropium/Albuterol 3 ML NEB NEB PRN (10:58)
[2024-02-08] MEDS ORDERED: fentaNYL 50 mcg/mL 1 mL Vial ONE ×2 (11:14→11:25)
[2024-02-08 11:33] LABS: #Basophils 0.05 10x3/uL (0.0-0.2); %Basophils 0.6 % (0.0-1.0); %Eosinophils 1.4 % (0.0-10.0); %Lymphocytes 7.7 % (21.0-51.0); %Monocytes 3.5 % (0.0-10.0); %Neutrophils 86.4 % (42.0-75.0); Hematocrit 33.8 % (42.0-52.0); Hemoglobin 11.1 g/dL (14.0-18.0); Mean Corpuscular HGB CONC 32.8 g/dL (32.0-36.0); Mean Corpuscular Volume 100.6 fL (78.0-98.0); Mean Platelet Volume 9.1 fL (7.4-10.4); Platelet Count 197 10x3/uL (130-400); RBC Distribution Width 14.4 % (11.5-14.5); Red Blood Cell (RBC) Count 3.36 mill/uL (4.70-6.10)
[2024-02-08 11:51] LABS: Anion Gap 11 mmol/L (10-20); BUN (Urea Nitrogen) 24 mg/dL (8.4-25.7); Calc. Creatinine Clearance 63 mL/min (70-130); Carbon Dioxide 21 mmol/L (23-31); Chloride 111 mmol/L (98-107); Estimated GFR 89; Glucose 154 mg/dL (83-110); Magnesium 2.1 mg/dL (1.6-2.6); Phosphorus 4.1 mg/dL (2.3-4.7); Potassium 4.5 mmol/L (3.5-5.1); Sodium 138 mmol/L (136-145)
[2024-02-08 13:14] VITALS: BMI 18.5
[2024-02-08] MEDS: Acetaminophen 325 MG TAB PO SCH (13:22)
[2024-02-08] MEDS: Methocarbamol 500 MG TAB PO SCH (13:23)
[2024-02-08] MEDS: Ketorolac Tromethamine 30 MG (1 mL) VIAL IVP SCH (13:23)
[2024-02-08] MEDS: Sodium Chloride 0.9% 1,000 ML IV SCH (13:23)
[2024-02-08] MEDS: Gabapentin 300 MG CAP PO SCH (15:23)
[2024-02-08] MEDS: HYDROcodone/Acetaminophen 10/325 mg Tablet PO PRN (15:24)
[2024-02-08] MEDS: CEFAZOLIN 2 GM in Sodium Chloride 0.9% 100 ML IVPB SCH (15:26)
[2024-02-08] MEDS: Atorvastatin Calcium 40 MG TAB PO SCH (21:19)
[2024-02-09] MEDS: Morphine 4 MG/ML VIAL SLOW IVP PRN (05:24)
[2024-02-09] MEDS: HYDROcodone/Acetaminophen 10/325 mg Tablet PO PRN (09:07)
[2024-02-09] MEDS: Aspirin Chewable 81 MG TAB PO SCH (09:09)
[2024-02-09] MEDS: Lidocaine 4% Patch TD SCH (09:10)
[2024-02-09] MEDS: Ipratropium/Albuterol 3 ML NEB EZPAP SCH (13:17)
[2024-02-09] MEDS: fentaNYL 50 mcg/mL 1 mL Vial SLOW IVP PRN (13:44)
[2024-02-09 16:20] VITALS: BMI 18.5
[2024-02-09] MEDS ORDERED: Senokot 8.6 MG TAB PO PRN (18:49)
[2024-02-09] MEDS: Transdermal Patch Removal TOP SCH (22:25)
[2024-02-10] MEDS: Lisinopril 10 MG TAB PO SCH (09:47)
[2024-02-10] MEDS: Polyethylene Glycol 3350 17 GM Packet PO SCH (09:48)
[2024-02-10] MEDS: Amlodipine 5 MG TAB PO SCH (20:10)
[2024-02-10] MEDS ORDERED: Amlodipine 10 MG TAB PO SCH (21:00)
[2024-02-11] MEDS ORDERED: Albuterol 200 PUFF (6.7GM INHALER) FS PRN (07:25)
[2024-02-11] MEDS ORDERED: Gabapentin 100 MG CAP PO SCH (09:00)
[2024-02-11] MEDS: fentaNYL 50 mcg/mL 1 mL Vial SLOW IVP PRN (09:14)
[2024-02-12] MEDS: tiZANidine HCl 4 MG TAB PO PRN (01:48)
[2024-02-12] MEDS: guaiFENesin/DM ER PO SCH ×2 (12:02→21:00)
[2024-02-12] MEDS: fentaNYL 50 mcg/mL 1 mL Vial SLOW IVP PRN (13:13)
[2024-02-12] MEDS: Heparin 5,000 UNITS/ML VIAL SC SCH (13:17)
[2024-02-19 11:54] VITALS: TEMP 98.3
[2024-02-19 16:24] VITALS: BP 101/57
== END 2024-02-19 16:56 | disposition home or self-care (01) | DRG 163 ==
LOC: EDSTATUS 14:30 → SURG A 02-08 06:12 → PCU 02-08 12:50
PROVIDERS: ADMIT Student in an Organized Health Care Education/Training Program; ATTEND Student in an Organized Health Care Education/Training Program
PROC: 0BBC4ZZ Excision of Right Upper Lung Lobe, Percutaneous Endoscopic Approach (ICD-10-PCS; principal; 2024-02-08)
PROC: 07B74ZZ Excision of Thorax Lymphatic, Percutaneous Endoscopic Approach (ICD-10-PCS; 2024-02-08)
DX: C34.11 Malignant neoplasm of upper lobe, right bronchus or lung (principal); J86.0 Pyothorax with fistula; T79.7XXA Traumatic subcutaneous emphysema, initial encounter; I10 Essential (primary) hypertension; M19.90 Unspecified osteoarthritis, unspecified site; E78.5 Hyperlipidemia, unspecified; I35.0 Nonrheumatic aortic (valve) stenosis; I71.40 Abdominal aortic aneurysm, without rupture, unspecified; Z90.49 Acquired absence of other specified parts of digestive tract; Z79.899 Other long term (current) drug therapy
CPT/HCPCS: 36415; 36416; 71045; 80048; 83735; 84100; 85025; 88305; 88307; 94640; A4314; C1776; C2613; J0171; J0665; J1100; J1642; J1644; J1885; J2272; J2371; J2405; J2704; J3010; J7620; S2900

== ENCOUNTER 2024-02-25 13:28 | Outpatient (CLI) | payer MEDICARE | END 2024-02-25 13:29 | disposition home or self-care (01) | LOC: RAD 13:28 | PROVIDERS: ATTEND Student in an Organized Health Care Education/Training Program | DX: C34.11 Malignant neoplasm of upper lobe, right bronchus or lung (principal); J98.2 Interstitial emphysema; Z98.890 Other specified postprocedural states; Z97.8 Presence of other specified devices | CPT/HCPCS: 71046 ==

== ENCOUNTER 2024-03-26 09:30 | Outpatient (CLI) | payer MEDICARE | END 2024-03-26 09:31 | disposition home or self-care (01) | LOC: PET 09:30 | PROVIDERS: ATTEND Internal Medicine Hematology & Oncology | DX: C34.81 Malignant neoplasm of overlapping sites of right bronchus and lung (principal) | CPT/HCPCS: 78815; A9552 ==

== ENCOUNTER 2024-03-27 08:35 | Outpatient (CLI) | payer MEDICARE | END 2024-03-27 08:36 | disposition home or self-care (01) | LOC: CT 08:35 | PROVIDERS: ATTEND Internal Medicine Hematology & Oncology | DX: C34.81 Malignant neoplasm of overlapping sites of right bronchus and lung (principal) | CPT/HCPCS: 70470 ==